=== PATIENT | male | born 1960 | race African-American/Black ===

== ENCOUNTER 2016-05-22 09:11 | Inpatient (IN) | payer OTHER ==
[2016-05-22 10:58] VITALS: BMI 34.9
--- NOTE | 2016-05-22 12:10 | HP ---
CIWA Score - CIWA Score Nausea/Vomitin-No Nausea/No Vomiting Muscle Tremors: 4-Moderate,w/Arms Extend Anxiety: 4-Mod. Anxious/Guarded Agitation: 4-Moderately Restless Paroxysmal Sweats: 1-Minimal Palms Moist Orientation: 0-Oriented Tacttile Disturbances: 3-Moderate Itch/Numb/Burn Auditory Disturbances: 0-None Visual Disturbances: 0-None Headache: 2-Mild CIWA-Ar Total Score: 18 Admission ROS BHS - HPI Chief Complaint: DETOX TX FOR ALCOHOL DEPENDENCE Allergies/Adverse Reactions: Allergies Allergy/AdvReac Type Severity Reaction Status Date / Time Penicillins Allergy Severe Rash Verified 05/22/16 11:52 turkey Allergy Severe Hives Verified 05/22/16 11:52 IV CONTRAST Allergy Severe Hives Uncoded 05/22/16 11:52 SEA FOOD Allergy Severe Hives Uncoded 05/22/16 11:52 History of Present Illness: 55 Y/O AA/MALE WITH A HX OF ALCOHOL AND COCAINE DEPENDENCE SEEKING DETOX TX. PT STATES HAD A STROKE END OF APRIL 2016 WEEK OF 04/28 - 05/03 AND HOSPITALIZED FOR 2 WEEKS AT [facility] .STARTED DRINKING COUPLE DAYS AFTER DISCHARGE EVERYDAY THEREAFTER. HX DM HTN ASTHMA COPD Exam Limitations: No Limitations - Ebola screening Have you traveled outside of the country in the last 21 days: No Have you had contact with anyone from an Ebola affected area: No Have you been sick,other than usual withdrawal symptoms: No - Review of Systems Constitutional: Chills, Loss of Appetite, Night Sweats, Changes in sleep EENT: reports: Blurred Vision (WEARS GLASSES), Tearing, Nose Congestion, Dental Problems (MISSING TEETH) Respiratory: reports: Shortness of Breath (HX ASTHMA AND COPD), Wheezing Cardiac: reports: Lightheadedness, Chest Tightness GI: reports: Blood Streaked Bowels (HX COLON POLYPS), Constipated, Diarrhea, Nausea, Poor Appetite, Poor Fluid Intake, Vomiting : reports: No Symptoms Reported Musculoskeletal: reports: Back Pain, Joint Pain, Muscle Pain Integumentary: reports: Bruising (ON ARMS) Neuro: reports: Headache, Unsteady Gait Endocrine: reports: No Symptoms Reported Psychiatric: reports: Orientated x3, Anxious Other Systems: Reviewed and Negative Patient History - Patient Medical History Hx Anemia: Yes (ON IRON) Hx Asthma: Yes (MDI) Hx Chronic Obstructive Pulmonary Disease (COPD): Yes (MDI) Hx Cancer: No Hx Cardiac Disorders: No Hx Congestive Heart Failure: No Hx Hypertension: Yes Hx Hypercholesterolemia: No Hx Pacemaker: No HX Cerebrovascular Accident: Yes (LEFT SIDE CVA 04/2016-RESIDUAL WEAKNESS.) Hx Seizures: No Hx Dementia: No Hx Diabetes: Yes (ON METFORMIN) Hx Gastrointestinal Disorders: No Hx Liver Disease: No Hx Genitourinary Disorders: No Hx Sexually Transmitted Disorders: No Hx Renal Disease (ESRD): No Hx Thyroid Disease: No Hx Human Immunodeficiency Virus (HIV): No (LAST 07/25 NEGATIVE) Hx Hepatitis C: No Hx Depression: Yes (ON MEDS) Hx Suicide Attempt: No (DENIES) Hx Bipolar Disorder: Yes ( ANXIETY DISORDER AND ADHD) Hx Schizophrenia: Yes Other Medical History: HX OF NEUROPATHY - Patient Surgical History Past Surgical History: Yes Hx Neurologic Surgery: No Hx Cataract Extraction: No Hx Cardiac Surgery: No Hx Lung Surgery: No Hx Breast Surgery: No Hx Breast Biopsy: No Hx Abdominal Surgery: No Hx Appendectomy: No Hx Cholecystectomy: No Hx Genitourinary Surgery: No Hx Orthopedic Surgery: Yes (RIGHT ACHILLES SX DUE T SPORTS FX 1979) Other Surgical History: UMBILICAL HERNIA REPAIR AT IN 2010 Anesthesia Reaction: No - PPD History Previous Implant?: Yes Documented Results: Negative w/o proof Implanted On Prior [facility] Admission?: Yes Date: 07/24/15 PPD to be Administered?: No - Reproductive History Patient is a Female of Child Bearing Age (11 -55 yrs old): No (MALE) - Smoking Cessation Smoking history: Current every day smoker Have you smoked in the past 12 months: Yes Aproximately how many cigarettes per day: 20 Hx Chewing Tobacco Use: No Initiated information on smoking cessation: Yes 'Breaking Loose' booklet given: 05/22/16 - Substance & Tx. History Hx Alcohol Use: Yes (BEER/COGNAC/WHISKY) Hx Substance Use: Yes (CRACK) Substance Use Type: Alcohol, Cocaine Hx Substance Use Treatment: Yes ([facility]) - Substances Abused Crack Route: Smoking Frequency: Daily Amount used: $100-200 Age of first use: 36 Date of Last Use: 05/21/16 Alcohol-beer/cognac/whisky Route: Oral Frequency: Daily Amount used: 2-6 pks./fifth Age of first use: 17 Date of Last Use: 05/22/16 Family Disease History - Family Disease History Family Disease History: Diabetes: Grandparent, Mother (), Heart Disease : Grandparent, Other: Father (ALCOHOL,) Admission Physical Exam [facility] - Vital Signs Vital Signs: Vital Signs - 24 hr 05/22/16 10:56 Temperature 97 F L Pulse Rate 80 Respiratory 20 Rate Blood Pressure 106/62 - Physical General Appearance: Yes: Moderate Distress, Obese, Irritable, Anxious HEENTM: Yes: EOMI, Normocephalic, BILL, Pharynx Normal Respiratory: Yes: Chest Non-Tender, Lungs Clear, Normal Breath Sounds, No Respiratory Distress Breast: Yes: Breasts Symetrical, No Discharge, Other (C/O UPPER CHEST/BREAST AREA DISCOMFORT. SMALL MOVABLE CYST-LIKE MULTIPLE LUMPS THROUGHOUT LARGE AREAS OF FATTY TISSUE OF BOTH BREASTS. PAIN ON PALPATION. HAS HAD FOR OVER ONE YEAR AND STATES HAS BROUGHT IT TO THE ATTENTION OF HIS PMD IN [place].) Cardiology: Yes: Regular Rhythm, Regular Rate, S1, S2 Abdominal: Yes: Normal Bowel Sounds, Non Tender, Soft, Protuberent Genitourinary: Yes: Other (N/C) Back: Yes: Within Normal Limits Musculoskeletal: Yes: full range of Motion, Muscle Pain (UPPER CHEST/BREAST AREAS ON PALPATION AND MOVEMENT), Muscle weakness (LEFT HAND. NON-SUSTAINING HAND RAISE.) Extremities: Yes: Normal Range of Motion, Tremors, Other Neurological: Yes: securities dealer II-XII NML intact, Fully Oriented, Alert, Motor Strength 5/5 (RIGHT SIDE WNL BUT WEAK ON LEFT SIDE ON HAND SQUEEZING.) Integumentary: Yes: Dry, Warm Lymphatic: Yes: Within Normal Limits - Diagnostic (1) Alcohol dependence with uncomplicated withdrawal Current Visit: Yes Status: Acute (2) Cigarette nicotine dependence Current Visit: Yes Status: Acute Qualifiers: Substance use status: in withdrawal Qualified Code(s): F17.213 - Nicotine dependence, cigarettes, with withdrawal (3) Cocaine dependence Current Visit: Yes Status: Acute Qualifiers: Substance use status: uncomplicated Qualified Code(s): F14.20 - Cocaine dependence, uncomplicated (4) Type II diabetes mellitus Current Visit: Yes Status: Chronic Qualifiers: Diabetes mellitus complication status: without complication 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 Qualified Code(s): E11.9 - Type 2 diabetes mellitus without complications (5) Use of cane as ambulatory aid Current Visit: Yes Status: Chronic (6) Anemia Current Visit: Yes Status: Chronic Qualifiers: Anemia type: unspecified type Qualified Code(s): D64.9 - Anemia, unspecified (7) Asthma Current Visit: Yes Status: Chronic Qualifiers: Asthma severity: unspecified severity Asthma complication type: uncomplicated Qualified Code(s): J45.909 - Unspecified asthma, uncomplicated (8) COPD (chronic obstructive pulmonary disease) Current Visit: Yes Status: Chronic Qualifiers: COPD type: emphysema Emphysema type: unspecified Qualified Code( s): J43.9 - Emphysema, unspecified (9) Chronic bilateral low back pain with bilateral sciatica Current Visit: Yes Status: Chronic (10) DJD (degenerative joint disease) Current Visit: Yes Status: Chronic Qualifiers: Osteoarthritis location: unspecified site Osteoarthritis type: unspecified Qualified Code(s): M19.90 - Unspecified osteoarthritis, unspecified site (11) HTN (hypertension) Current Visit: Yes Status: Chronic Qualifiers: Hypertension type: essential hypertension Qualified Code(s): I10 - Essential (primary) hypertension (12) Obesity Current Visit: Yes Status: Chronic Qualifiers: Obesity type: unspecified obesity type Obesity severity: morbid Qualified Code(s): E66.01 - Morbid (severe) obesity due to excess calories (13) Gynecomastia, male Current Visit: Yes Status: Chronic Cleared for Admission BHS - Detox or Rehab [facility] Level of Care: Medically Managed Detox Regimen/Protocol: Librium S Breath Alcohol Content Breath Alcohol Content: 0 Urine Drug Screen - Results Drug Screen Negative: No Urine Drug Screen Results: KRISTI-Cocaine, OXY-Oxycodone
[2016-05-22] MEDS ORDERED: MAG HYDROX/AL HYDROX/SIMETH 30 ML UNIT-DOSE CUP PO PRN (13:41)
[2016-05-22] MEDS ORDERED: IBUPROFEN 400 MG TABLET (FP) PO PRN (13:41)
[2016-05-22] MEDS ORDERED: ACETAMINOPHEN 325 MG TABLET (FP) PO PRN (13:41)
[2016-05-22] MEDS ORDERED: MAGNESIUM HYDROX 2400MG/30ML ORAL SUSPENSION 30 ML CUP PO PRN (13:41)
[2016-05-22] MEDS ORDERED: guaiFENesin/D-METHORPHAN HB 10 ML UNIT-DOSE CUPS PO PRN (13:41)
[2016-05-22] MEDS ORDERED: chlordiazePOXIDE HCL 25 MG CAPSULE PO PRN (13:41)
[2016-05-22] MEDS ORDERED: diphenhydrAMINE HCL 50 MG CAPSULE PO PRN (13:41)
[2016-05-22] MEDS ORDERED: MAGNESIUM CITRATE 300 ML BOTTLE PO PRN (13:41)
[2016-05-22] MEDS ORDERED: LOPERAMIDE HCL 2 MG CAPSULE PO PRN (13:41)
[2016-05-22] MEDS ORDERED: P-EPHED 60MG/TRIPROLIDI 2.5MG TABLET PO PRN (13:41)
[2016-05-22] MEDS ORDERED: MENTHOL/PHENOL 1 EACH UD MM PRN (13:41)
[2016-05-22] MEDS ORDERED: hydrOXYzine PAMOATE 25 MG CAPSULE (FP) PO PRN (13:47)
[2016-05-22] MEDS ORDERED: ALBUTEROL SO4 6.7 GM HFA INHALER IH PRN (14:03)
[2016-05-22] MEDS: LISINOPRIL 10 MG TABLET (FP) PO SCH (15:24)
[2016-05-22] MEDS: NICOTINE 21 MG/24 HOURS TOPICAL PATCH TD SCH (15:24)
[2016-05-22] MEDS: ASPIRIN COATED 81 MG TABLET.EC PO SCH (15:24)
[2016-05-22] MEDS: FERROUS SO4 325 MG TABLET (FP) PO SCH (15:24)
[2016-05-22] MEDS: NICOTINE POLACRILEX 4 MG GUM BUC PRN (15:25)
[2016-05-22 17:40] LABS: URINE APPEARANCE CLEAR; URINE BILIRUBIN NEGATIVE (NEGATIVE); URINE BLOOD NEGATIVE (NEGATIVE); URINE COLOR LTYELLOW; URINE GLUCOSE (UA) NEGATIVE (NEGATIVE); URINE KETONE NEGATIVE (NEGATIVE); URINE NITRITE NEGATIVE (NEGATIVE); URINE PROTEIN NEGATIVE (NEGATIVE); URINE UROBILINOGEN NEGATIVE E.U./dl (0.2-1.0)
[2016-05-22 17:56] LABS: URINE LEUK ESTERASE TRACE (NEGATIVE)
[2016-05-22 18:23] LABS: URINE RBC 1 /hpf (0-3); URINE WBC 12 /hpf (3-5)
[2016-05-22] MEDS: metFORMIN HCL 500 MG TABLET (FP) PO SCH (18:27)
[2016-05-22] MEDS: chlordiazePOXIDE HCL 25 MG CAPSULE PO SCH ×2 (18:27→22:00)
[2016-05-22] MEDS: GABAPENTIN 300 MG CAPSULE (FP) PO SCH (21:58)
[2016-05-22] MEDS: CYCLOBENZAPRINE HCL 10 MG TABLET (FP) PO SCH (21:58)
[2016-05-22] MEDS: ATORVASTATIN CA 20 MG TABLET (FP) PO SCH (21:58)
[2016-05-22] MEDS: THIAMINE HCL 100 MG TABLET (FP) PO SCH (21:58)
[2016-05-23] MEDS: chlordiazePOXIDE HCL 25 MG CAPSULE PO SCH (06:15)
[2016-05-23] MEDS: GABAPENTIN 300 MG CAPSULE (FP) PO SCH ×3 (06:15→22:27)
[2016-05-23] MEDS: CYCLOBENZAPRINE HCL 10 MG TABLET (FP) PO SCH (07:24)
[2016-05-23] MEDS: metFORMIN HCL 500 MG TABLET (FP) PO SCH ×2 (07:24→17:32)
[2016-05-23 09:18] LABS: HIV 1 & 2 AB NEGATIVE; HIV 1 AGp24 NEGATIVE
[2016-05-23] MEDS: PRENATAL VITAMINS W/ FOLIC ACID TABLET (FP) PO SCH (10:09)
[2016-05-23] MEDS: NICOTINE 21 MG/24 HOURS TOPICAL PATCH TD SCH (10:09)
[2016-05-23] MEDS: FERROUS SO4 325 MG TABLET (FP) PO SCH ×2 (10:09→17:32)
[2016-05-23] MEDS: ASPIRIN COATED 81 MG TABLET.EC PO SCH (10:09)
--- NOTE | 2016-05-23 10:09 | EKG ---
Test Reason : Blood Pressure : / mmHG Vent. Rate : 062 BPM Atrial Rate : 062 BPM P-R Int : 148 ms QRS Dur : 090 ms QT Int : 434 ms P-R-T Axes : 040 008 025 degrees QTc Int : 440 ms NORMAL SINUS RHYTHM SEPTAL INFARCT , AGE UNDETERMINED NON-SPECIFIC INTRA-VENTRICULAR CONDUCTION DELAY ABNORMAL ECG NO PREVIOUS ECGS AVAILABLE Confirmed by VIOLETA LOUIS MD ([id number]) on 05/23/2016 10:08:51 AM Referred By: Oscar Borges Confirmed By:VIOLETA LOUIS MD
[2016-05-23] MEDS: NICOTINE POLACRILEX 4 MG GUM BUC PRN ×2 (10:11→23:05)
[2016-05-23 10:18] LABS: MCH 28.1 pg (25.7-33.7); MCHC 32.9 g/dl (32.0-35.9); MEAN CELL VOLUME 85.3 fl (80-96); MEAN PLT VOLUME 9.5 fl (7.5-11.1); PLATELET COUNT 309 K/MM3 (134-434); RDW 16.4 % (11.9-15.9); WHITE BLOOD COUNT 7.9 K/mm3 (4.0-10.0)
[2016-05-23 10:30] LABS: ALBUMIN 3.5 g/dl (3.4-5.0); ANION GAP 8 (8-16); CALCIUM 8.6 mg/dL (8.5-10.1); CO2 25 mmol/L (21-32); GLUCOSE,RANDOM 136 mg/dL (74-106)
[2016-05-23] MEDS: LISINOPRIL 10 MG TABLET (FP) PO SCH (10:33)
[2016-05-23 10:34] LABS: ALK PHOS 147 U/L (45-117); BILIRUBIN,TOTAL 0.2 mg/dL (0.2-1.0); COCKROFT - GAULT 113.28; CREATININE 1.1 mg/dL (0.7-1.3); SGOT/AST 39 U/L (15-37); SGPT/ALT 38 U/L (12-78)
--- NOTE | 2016-05-23 13:31 | CONSULT ---
[facility] Psychiatric Consult - Data Date of interview: 05/23/16 Admission source: [facility] Identifying data: Another admission to [facility] for this 55 y/o AA male seeking detox treatment on for alcohol and cocaine dependence.Patient is a ,a father of one,currently homeless,unemployed (disabled) and supported on SSI benefits. Substance Abuse History: - Smoking Cessation. Smoking history: Current every day smoker. Have you smoked in the past 12 months: Yes. Aproximately how many cigarettes per day: 20. Hx Chewing Tobacco Use: No. Initiated information on smoking cessation: Yes. 'Breaking Loose' booklet given: 05/22/16. - Substance & Tx. History. Hx Alcohol Use: Yes (BEER/COGNAC/WHISKY). Hx Substance Use: Yes (CRACK). Substance Use Type: Alcohol, Cocaine. Hx Substance Use Treatment : Yes ([facility]). - Substances Abused. Crack. Route: Smoking. Frequency: Daily. Amount used: $100-200. Age of first use: 36. Date of Last Use: 05/21/16. Alcohol-beer/cognac/whisky. Route: Oral. Frequency: Daily. Amount used: 2-6 pks./fifth. Age of first use: 17. Date of Last Use: . Confirmed by patient. Medical History: COPD,diabetes mellitus-type II,bronchial asthma,CVA with left- sidede weakness (04/2016),neuropathy,sleep apnea,degenerative joint disease and anemia.Low back pain.Patient walks with a cane. Psychiatric History: Superficially cooperative historian.In this interview,the patient denies history of psychiatric hospitalizations and OPD care." I stopped seeing the psychiatrist and I am no longer taking psychiatric medications." Diagnosed with ADHD and Schizoaffective Disorder (as per records).Remote history of a suicide attempt (wrist-cutting). Physical/Sexual Abuse/Trauma History: Patient denies. Additional Comment: Urine Drug Screen Results: KRISTI-Cocaine, OXY-Oxycodone.Noted. Mental Status Exam - Mental Status Exam Alert and Oriented to: Time, Place, Person Cognitive Function: Grossly Intact Patient Appearance: Unkempt, Disheveled (walking with a cane;unsteady gait) Mood: Angry (for no apparent reason), Irritable Affect: Blunted Patient Behavior: Fatigued, Uncooperative, Guarded Speech Pattern: Clear (non-spontaneous but coherent) Voice Loudness: Moderately Soft/Quiet Thought Process: Disorganized Thought Disorder: Bizarre Hallucinations: Denies Suicidal Ideation: Denies Homicidal Ideation: Denies Insight/Judgement: Poor Sleep: Fair Appetite: Good Gait/Station: Other (walks with cane since stroke in April 2016) Psychiatric Findings - Problem List ([place] 1, 2,3) (1) Alcohol dependence with uncomplicated withdrawal Current Visit: Yes Status: Acute (2) Cocaine dependence Current Visit: Yes Status: Acute Qualifiers: Substance use status: uncomplicated Qualified Code(s): F14.20 - Cocaine dependence, uncomplicated (3) Cigarette nicotine dependence Current Visit: Yes Status: Acute Qualifiers: Substance use status: in withdrawal Qualified Code(s): F17.213 - Nicotine dependence, cigarettes, with withdrawal (4) ADHD (attention deficit hyperactivity disorder) Current Visit: Yes Status: Chronic Qualifiers: Attention deficit-hyperactivity disorder type: unspecified Qualified Code(s): F90.9 - Attention-deficit hyperactivity disorder, unspecified type Comment: Self-reported history. (5) Schizoaffective disorder Current Visit: Yes Status: Suspected Qualifiers: Schizoaffective disorder type: bipolar Qualified Code(s): F25.0 - Schizoaffective disorder, bipolar type Comment: History. (6) Anemia Current Visit: Yes Status: Chronic Qualifiers: Anemia type: unspecified type Qualified Code(s): D64.9 - Anemia, unspecified (7) Asthma Current Visit: Yes Status: Chronic Qualifiers: Asthma severity: unspecified severity Asthma complication type: uncomplicated Qualified Code(s): J45.909 - Unspecified asthma, uncomplicated (8) COPD (chronic obstructive pulmonary disease) Current Visit: Yes Status: Chronic Qualifiers: COPD type: emphysema Emphysema type: unspecified Qualified Code( s): J43.9 - Emphysema, unspecified (9) Chronic bilateral low back pain with bilateral sciatica Current Visit: Yes Status: Chronic (10) DJD (degenerative joint disease) Current Visit: Yes Status: Chronic Qualifiers: Osteoarthritis location: unspecified site Osteoarthritis type: unspecified Qualified Code(s): M19.90 - Unspecified osteoarthritis, unspecified site (11) HTN (hypertension) Current Visit: Yes Status: Chronic Qualifiers: Hypertension type: essential hypertension Qualified Code(s): I10 - Essential (primary) hypertension (12) Obesity Current Visit: Yes Status: Chronic Qualifiers: Obesity type: unspecified obesity type Obesity severity: morbid Qualified Code(s): E66.01 - Morbid (severe) obesity due to excess calories (13) Type II diabetes mellitus Current Visit: Yes Status: Chronic Qualifiers: Diabetes mellitus complication status: without complication 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
--- NOTE | 2016-05-23 13:33 | PN ---
[facility] CIWA - CIWA Score Nausea/Vomitin-No Nausea/No Vomiting Muscle Tremors: 4-Moderate,w/Arms Extend Anxiety: 3 Agitation: 2 Paroxysmal Sweats: 3 Orientation: 0-Oriented Tacttile Disturbances: 1-Very Mild Itch/Numbness Auditory Disturbances: 0-None Visual Disturbances: 0-None Headache: 0-None Present CIWA-Ar Total Score: 13 BHS Progress Note (SOAP) Subjective: Anxiety,tremors,sweating,interrupted sleep,restless Objective: 05/23/16 13:32 Vital Signs - 8 hr 05/23/16 05/23/16 06:45 10:37 Temperature 96.6 F L 96.9 F L Pulse Rate 78 61 Respiratory 18 18 Rate Blood Pressure 112/71 105/61 Laboratory Last Values WBC 7.9 K/mm3 (4.0-10.0) D 05/23/16 06:00 RBC 2.86 M/mm3 (4.00-5.60) L D 05/23/16 06:00 Hgb 8.0 GM/dL (11.7-16.9) L D 05/23/16 06:00 Hct 24.4 % (35.4-49) L D 05/23/16 06:00 MCV 85.3 fl (80-96) 05/23/16 06:00 MCHC 32.9 g/dl (32.0-35.9) 05/23/16 06:00 RDW 16.4 % (11.9-15.9) H 05/23/16 06:00 Plt Count 309 K/MM3 (134-434) D 05/23/16 06:00 MPV 9.5 fl (7.5-11.1) 05/23/16 06:00 Sodium 139 mmol/L (136-145) 05/23/16 06:00 Potassium 3.9 mmol/L (3.5-5.1) 05/23/16 06:00 Chloride 106 mmol/L (98-107) 05/23/16 06:00 Carbon Dioxide 25 mmol/L (21-32) 05/23/16 06:00 Anion Gap 8 (8-16) 05/23/16 06:00 BUN 18 mg/dL (7-18) 05/23/16 06:00 Creatinine 1.1 mg/dL (0.7-1.3) 05/23/16 06:00 Creat Clearance w eGFR > 60 (>60) 05/23/16 06:00 POC Glucometer 103 UNITS (()) 05/23/16 06:13 Random Glucose 136 mg/dL (74-106) H D 05/23/16 06:00 Calcium 8.6 mg/dL (8.5-10.1) 05/23/16 06:00 Total Bilirubin 0.2 mg/dL (0.2-1.0) D 05/23/16 06:00 AST 39 U/L (15-37) H 05/23/16 06:00 ALT 38 U/L (12-78) 05/23/16 06:00 Alkaline Phosphatase 147 U/L (45-117) H D 05/23/16 06:00 Total Protein 7.0 g/dl (6.4-8.2) 05/23/16 06:00 Albumin 3.5 g/dl (3.4-5.0) 05/23/16 06:00 Urine Color Ltyellow 05/22/16 15:00 Urine Appearance Clear 05/22/16 15:00 Urine pH 5.0 (5.0-8.0) 05/22/16 15:00 Ur Specific [place] 1.024 (1.001-1.035) 05/22/16 15:00 Urine Protein Negative (NEGATIVE) 05/22/16 15:00 Urine Glucose (UA) Negative (NEGATIVE) 05/22/16 15:00 Urine Ketones Negative (NEGATIVE) 05/22/16 15:00 Urine Blood Negative (NEGATIVE) 05/22/16 15:00 Urine Nitrite Negative (NEGATIVE) 05/22/16 15:00 Urine Bilirubin Negative (NEGATIVE) 05/22/16 15:00 Urine Urobilinogen Negative E.U./dl (0.2-1.0) 05/22/16 15:00 Ur Leukocyte Esterase Trace (NEGATIVE) H 05/22/16 15:00 Urine RBC 1 /hpf (0-3) 05/22/16 15:00 Urine WBC 12 /hpf (3-5) 05/22/16 15:00 Ur Epithelial Cells Rare /hpf (FEW) 05/22/16 15:00 RPR Titer Nonreactive (NONREACTIVE) 05/23/16 06:00 HIV 1&2 Antibody Screen Negative 05/22/16 10:00 HIV P24 Antigen Negative 05/22/16 10:00 labs noted Assessment: 05/23/16 13:33 Withdrawal sx. Plan: Continue detox
[2016-05-23] MEDS ORDERED: chlordiazePOXIDE 5 MG CAPSULE PO SCH (17:00)
[2016-05-23] MEDS: chlordiazePOXIDE HCL 10 MG CAPSULE PO SCH ×2 (17:35→22:28)
[2016-05-23] MEDS: THIAMINE HCL 100 MG TABLET (FP) PO SCH (22:26)
[2016-05-23] MEDS: ATORVASTATIN CA 20 MG TABLET (FP) PO SCH (22:28)
[2016-05-24] MEDS: CYCLOBENZAPRINE HCL 10 MG TABLET (FP) PO PRN ×2 (05:36→18:59)
[2016-05-24] MEDS: chlordiazePOXIDE HCL 10 MG CAPSULE PO SCH ×2 (05:36→11:21)
[2016-05-24] MEDS: GABAPENTIN 300 MG CAPSULE (FP) PO SCH ×2 (05:36→13:22)
[2016-05-24] MEDS: FERROUS SO4 325 MG TABLET (FP) PO SCH ×3 (07:29→18:02)
[2016-05-24] MEDS: metFORMIN HCL 500 MG TABLET (FP) PO SCH ×2 (08:35→18:02)
[2016-05-24] MEDS: LISINOPRIL 10 MG TABLET (FP) PO SCH (11:22)
[2016-05-24] MEDS: ASPIRIN COATED 81 MG TABLET.EC PO SCH (11:22)
[2016-05-24] MEDS: PRENATAL VITAMINS W/ FOLIC ACID TABLET (FP) PO SCH (11:22)
[2016-05-24] MEDS: NICOTINE 21 MG/24 HOURS TOPICAL PATCH TD SCH (11:26)
[2016-05-24] MEDS: NICOTINE POLACRILEX 4 MG GUM BUC PRN ×2 (13:24→18:06)
[2016-05-24] MEDS ORDERED: chlordiazePOXIDE HCL 10 MG CAPSULE PO SCH (17:00)
[2016-05-24] MEDS ORDERED: chlordiazePOXIDE 5 MG CAPSULE PO SCH (17:00)
--- NOTE | 2016-05-24 17:20 | PN ---
S CIWA - CIWA Score Nausea/Vomitin-Mild Nausea/No Vomiting Muscle Tremors: 3 Anxiety: 3 Agitation: 2 Paroxysmal Sweats: 3 Orientation: 1-Uncertain about Date Tacttile Disturbances: 2-Mild Itch/Numbness/Burn Auditory Disturbances: 0-None Visual Disturbances: 2-Mild Sensitivity Headache: 2-Mild CIWA-Ar Total Score: 19 S Progress Note (SOAP) Subjective: Fatigue, H/A, Interrupted sleep. Objective: PT. A & O X 2 (DISORIENTED ABOUT DAY / DATE). PT. OBSERVED AMBULATING ON UNIT. 05/24/16 17:18 Vital Signs Temperature 96 F L 05/24/16 14:00 Pulse Rate 64 05/24/16 14:00 Respiratory Rate 20 05/24/16 14:00 Blood Pressure 117/73 05/24/16 14:00 O2 Sat by Pulse Oximetry (%) Laboratory Last Values WBC 7.9 K/mm3 (4.0-10.0) D 05/23/16 06:00 RBC 2.86 M/mm3 (4.00-5.60) L D 05/23/16 06:00 Hgb 8.0 GM/dL (11.7-16.9) L D 05/23/16 06:00 Hct 24.4 % (35.4-49) L D 05/23/16 06:00 MCV 85.3 fl (80-96) 05/23/16 06:00 MCHC 32.9 g/dl (32.0-35.9) 05/23/16 06:00 RDW 16.4 % (11.9-15.9) H 05/23/16 06:00 Plt Count 309 K/MM3 (134-434) D 05/23/16 06:00 MPV 9.5 fl (7.5-11.1) 05/23/16 06:00 Sodium 139 mmol/L (136-145) 05/23/16 06:00 Potassium 3.9 mmol/L (3.5-5.1) 05/23/16 06:00 Chloride 106 mmol/L (98-107) 05/23/16 06:00 Carbon Dioxide 25 mmol/L (21-32) 05/23/16 06:00 Anion Gap 8 (8-16) 05/23/16 06:00 BUN 18 mg/dL (7-18) 05/23/16 06:00 Creatinine 1.1 mg/dL (0.7-1.3) 05/23/16 06:00 Creat Clearance w eGFR > 60 (>60) 05/23/16 06:00 POC Glucometer 219 UNITS (()) 05/24/16 16:55 Random Glucose 136 mg/dL (74-106) H D 05/23/16 06:00 Calcium 8.6 mg/dL (8.5-10.1) 05/23/16 06:00 Total Bilirubin 0.2 mg/dL (0.2-1.0) D 05/23/16 06:00 AST 39 U/L (15-37) H 05/23/16 06:00 ALT 38 U/L (12-78) 05/23/16 06:00 Alkaline Phosphatase 147 U/L (45-117) H D 05/23/16 06:00 Total Protein 7.0 g/dl (6.4-8.2) 05/23/16 06:00 Albumin 3.5 g/dl (3.4-5.0) 05/23/16 06:00 Urine Color Ltyellow 05/22/16 15:00 Urine Appearance Clear 05/22/16 15:00 Urine pH 5.0 (5.0-8.0) 05/22/16 15:00 Ur Specific [place] 1.024 (1.001-1.035) 05/22/16 15:00 Urine Protein Negative (NEGATIVE) 05/22/16 15:00 Urine Glucose (UA) Negative (NEGATIVE) 05/22/16 15:00 Urine Ketones Negative (NEGATIVE) 05/22/16 15:00 Urine Blood Negative (NEGATIVE) 05/22/16 15:00 Urine Nitrite Negative (NEGATIVE) 05/22/16 15:00 Urine Bilirubin Negative (NEGATIVE) 05/22/16 15:00 Urine Urobilinogen Negative E.U./dl (0.2-1.0) 05/22/16 15:00 Ur Leukocyte Esterase Trace (NEGATIVE) H 05/22/16 15:00 Urine RBC 1 /hpf (0-3) 05/22/16 15:00 Urine WBC 12 /hpf (3-5) 05/22/16 15:00 Ur Epithelial Cells Rare /hpf (FEW) 05/22/16 15:00 RPR Titer Nonreactive (NONREACTIVE) 05/23/16 06:00 HIV 1&2 Antibody Screen Negative 05/22/16 10:00 HIV P24 Antigen Negative 05/22/16 10:00 LABS NOTED. Assessment: 05/24/16 17:19 WITHDRAWAL SYMPTOMS. Plan: CONTINUE DETOX. ADVISED PATIENT TO FOLLOW-UP WITH [facility] REHAB MEDICAL PROVIDER AFTER DISCHARGE FROM DETOX FOR GENERAL MEDICAL ASSESSMENT AND FOR ABNORMAL ADMISSION LAB VALUES.
[2016-05-24 18:05] VITALS: BP 106/52; PULSE 60; TEMP 97
--- NOTE | 2016-05-24 22:56 | PN ---
S Progress Note Note: MD'S NOTE: INFORMED AT ABOUT 10:50PM THAT THE PT. SIGNED OUT AMA AT ABOUT 9:15PM HOWEVER, HE WAS RECOMMENDED TO F/U WITH PMD AND OUT PT. PROGRAMS. PROVIDER: RACHAEL DANIELS MD
[2016-05-25] MEDS ORDERED: chlordiazePOXIDE HCL 10 MG CAPSULE PO SCH (17:00)
--- NOTE | 2016-05-30 10:59 | DS ---
[facility] Detox Discharge Summary Admission Date: 05/22/16 Discharge Date: 05/24/16 - History Present History: Alcohol Dependence, Cocaine Dependence Pertinent Past History: Asthma HTN Type II DM Obesity - Physical Exam Results Vital Signs: Vital Signs Temperature 97 F L 05/24/16 18:04 Pulse Rate 60 05/24/16 18:04 Respiratory Rate 18 05/24/16 18:04 Blood Pressure 106/52 05/24/16 18:04 O2 Sat by Pulse Oximetry (%) Pertinent Admission Physical Exam Findings: Withdrawal sx. Laboratory Tests 05/22/16 05/22/16 05/22/16 10:00 12:40 15:00 WBC RBC Hgb Hct MCV MCHC RDW Plt Count MPV Sodium Potassium Chloride Carbon Dioxide Anion Gap BUN Creatinine Creat Clearance w eGFR POC Glucometer 134 Random Glucose Calcium Total Bilirubin AST ALT Alkaline Phosphatase Total Protein Albumin Urine Color Ltyellow Urine Appearance Clear Urine pH 5.0 Ur Specific [place] 1.024 Urine Protein Negative Urine Glucose (UA) Negative Urine Ketones Negative Urine Blood Negative Urine Nitrite Negative Urine Bilirubin Negative Urine Urobilinogen Negative Ur Leukocyte Esterase Trace H Urine RBC 1 Urine WBC 12 Ur Epithelial Cells Rare RPR Titer HIV 1&2 Antibody Screen Negative HIV P24 Antigen Negative 05/22/16 05/23/16 05/23/16 16:34 06:00 06:00 WBC 7.9 D RBC 2.86 L D Hgb 8.0 L D Hct 24.4 L D MCV 85.3 MCHC 32.9 RDW 16.4 H Plt Count 309 D MPV 9.5 Sodium 139 Potassium 3.9 Chloride 106 Carbon Dioxide 25 Anion Gap 8 BUN 18 Creatinine 1.1 Creat Clearance w eGFR > 60 POC Glucometer 112 Random Glucose 136 H D Calcium 8.6 Total Bilirubin 0.2 D AST 39 H ALT 38 Alkaline Phosphatase 147 H D Total Protein 7.0 Albumin 3.5 Urine Color Urine Appearance Urine pH Ur Specific [place] Urine Protein Urine Glucose (UA) Urine Ketones Urine Blood Urine Nitrite Urine Bilirubin Urine Urobilinogen Ur Leukocyte Esterase Urine RBC Urine WBC Ur Epithelial Cells RPR Titer HIV 1&2 Antibody Screen HIV P24 Antigen 05/23/16 05/23/16 05/23/16 06:00 06:13 16:24 WBC RBC Hgb Hct MCV MCHC RDW Plt Count MPV Sodium Potassium Chloride Carbon Dioxide Anion Gap BUN Creatinine Creat Clearance w eGFR POC Glucometer 103 177 Random Glucose Calcium Total Bilirubin AST ALT Alkaline Phosphatase Total Protein Albumin Urine Color Urine Appearance Urine pH Ur Specific [place] Urine Protein Urine Glucose (UA) Urine Ketones Urine Blood Urine Nitrite Urine Bilirubin Urine Urobilinogen Ur Leukocyte Esterase Urine RBC Urine WBC Ur Epithelial Cells RPR Titer Nonreactive HIV 1&2 Antibody Screen HIV P24 Antigen 05/24/16 05/24/16 05:38 16:55 WBC RBC Hgb Hct MCV MCHC RDW Plt Count MPV Sodium Potassium Chloride Carbon Dioxide Anion Gap BUN Creatinine Creat Clearance w eGFR POC Glucometer 99 219 Random Glucose Calcium Total Bilirubin AST ALT Alkaline Phosphatase Total Protein Albumin Urine Color Urine Appearance Urine pH Ur Specific [place] Urine Protein Urine Glucose (UA) Urine Ketones Urine Blood Urine Nitrite Urine Bilirubin Urine Urobilinogen Ur Leukocyte Esterase Urine RBC Urine WBC Ur Epithelial Cells RPR Titer HIV 1&2 Antibody Screen HIV P24 Antigen labs noted - Treatment Patient has Accepted a Rehab Referral to: AA meetings - Medication Discharge Medications: Ambulatory Orders Aspirin [Ecotrin] 81 mg PO DAILY 07/22/15 Cyclobenzaprine HCl [Flexeril -] 10 mg PO TID 07/22/15 Ferrous Sulfate [Feosol] 325 mg PO DAILY 07/22/15 Gabapentin 600 mg PO TID 07/22/15 Lisinopril 10 mg PO DAILY 07/22/15 Metformin HCl [Glucophage] 500 mg PO BID 07/22/15 Trazodone HCl [Desyrel -] 150 mg PO HS 07/22/15 Albuterol Sulfate Inhaler - [Ventolin Hfa Inhaler -] 2 inh IH Q4H PRN 05/22/16 Simvastatin [Zocor -] 40 mg PO HS 05/22/16 - Diagnosis (1) Alcohol dependence with uncomplicated withdrawal Status: Acute (2) Cigarette nicotine dependence Status: Acute Qualifiers: Substance use status: uncomplicated Qualified Code(s): F17.210 - Nicotine dependence, cigarettes, uncomplicated (3) Cocaine dependence Status: Acute Qualifiers: Substance use status: uncomplicated Qualified Code(s): F14.20 - Cocaine dependence, uncomplicated (4) ADHD (attention deficit hyperactivity disorder) Status: Chronic Qualifiers: Attention deficit-hyperactivity disorder type: unspecified Qualified Code(s): F90.9 - Attention-deficit hyperactivity disorder, unspecified type (5) HTN (hypertension) Status: Chronic Qualifiers: Hypertension type: essential hypertension Qualified Code(s): I10 - Essential (primary) hypertension (6) Obesity Status: Chronic Qualifiers: Obesity type: unspecified obesity type Obesity severity: morbid Qualified Code(s): E66.01 - Morbid (severe) obesity due to excess calories (7) Type II diabetes mellitus Status: Chronic Qualifiers: Diabetes mellitus complication status: without complication Diabetes mellitus technician terminal and repeater insulin use: without technician terminal and repeater use Qualified Code(s): E11.9 - Type 2 diabetes mellitus without complications (8) Schizoaffective disorder Status: Suspected Qualifiers: Schizoaffective disorder type: bipolar Qualified Code(s): F25.0 - Schizoaffective disorder, bipolar type - AMA Did Patient Leave Against Medical Advice: Yes
== END 2016-05-24 21:15 | disposition left against medical advice (07) | DRG 894 ==
LOC: YASAS 09:11 → Y3N 14:08
PROVIDERS: ADMIT Internal Medicine; ATTEND Internal Medicine
PROC: HZ2ZZZZ Detoxification Services for Substance Abuse Treatment (ICD-10-PCS; principal; 2016-05-22)
DX: F10.230 Alcohol dependence with withdrawal, uncomplicated (principal); F14.20 Cocaine dependence, uncomplicated; F17.213 Nicotine dependence, cigarettes, with withdrawal; F90.9 Attention-deficit hyperactivity disorder, unspecified type; F25.0 Schizoaffective disorder, bipolar type; D64.9 Anemia, unspecified; J45.909 Unspecified asthma, uncomplicated; J43.9 Emphysema, unspecified; M54.42 Lumbago with sciatica, left side; M54.41 Lumbago with sciatica, right side; G89.29 Other chronic pain; M19.90 Unspecified osteoarthritis, unspecified site; I10 Essential (primary) hypertension; E66.01 Morbid (severe) obesity due to excess calories; Z68.35 Body mass index [BMI] 35.0-35.9, adult; E11.9 Type 2 diabetes mellitus without complications; G47.30 Sleep apnea, unspecified; R26.2 Difficulty in walking, not elsewhere classified
CPT/HCPCS: 36415; 80053; 81003; 81015; 85027; 86593; 87389; 93005; 93010

== ENCOUNTER 2018-11-06 09:11 | Inpatient (IN) | payer OTHER ==
[2018-11-06 11:06] VITALS: BMI 30.5
--- NOTE | 2018-11-06 12:19 | HP ---
CIWA Score Nausea/Vomitin Muscle Tremors: 4-Moderate,w/Arms Extend Anxiety: 4-Mod. Anxious/Guarded Agitation: 2 Paroxysmal Sweats: No Perspiration Orientation: 0-Oriented Tacttile Disturbances: 1-Very Mild Itch/Numbness Auditory Disturbances: 1-Very Mild Visual Disturbances: 1-Very Mild Sensitivity Headache: 2-Mild CIWA-Ar Total Score: 17 - Admission Criteria OASAS Guidelines: Admission for Medically Managed Detox: Requires at least one of the followin. CIWA greater than 12 2. Seizures within the past 24 hours 3. Delirium tremens within the past 24 hours 4. Hallucinations within the past 24 hours 5. Acute intervention needed for co occurring medical disorder 6. Acute intervention needed for co occurring psychiatric disorder 7. Severe withdrawal that cannot be handled at a lower level of care (continued vomiting, continued diarrhea, abnormal vital signs) requiring intravenous medication and/or fluids 8. Patient presents the following: CIWA greater than 12 Admission Criteria Met: Admission criteria met Admission ROS S - [facility] Chief Complaint: I want to stop drinking, I want a better life, I want to stop neglecting myself , I love myself Allergies/Adverse Reactions: Allergies Allergy/AdvReac Type Severity Reaction Status Date / Time Penicillins Allergy Severe Rash Verified 11/06/18 10:56 turkey Allergy Severe Hives Verified 11/06/18 10:56 IV CONTRAST Allergy Severe Hives Uncoded 11/06/18 10:56 SEA FOOD Allergy Severe Hives Uncoded 11/06/18 10:56 History of Present Illness: 58 yo gentleman here for detox from alcohol. This is one of several admissions for treatment - last time here for detox 2017- states he did well for a while and relapsed about 8 months ago. No seizures but does have black outs. States she drinks 'sun-up to sun-down and in between'. States when he tries to stop drinking he gets very shaky, nauseous and gets terrible headache. He was living in [facility] for a while and came back here when his brother was ill ( and ). He is getting medical care currently at [facility] and waiting psych appointment but previously was getting psych care in [place]. He is living with friends now but plans to go back to [place]. I called [facility] pharmacy to verify meds as patient wasn't sure but pharmacy is closed on the weekend. Exam Limitations: No Limitations - Ebola screening Have you traveled outside of the country in the last 21 days: No (N) Have you had contact with anyone from an Ebola affected area: No Do you have a fever: No - Review of Systems Constitutional: Loss of Appetite, Malaise, Changes in sleep, Weakness EENT: reports: Blurred Vision Respiratory: reports: No Symptoms reported Cardiac: reports: No Symptoms Reported GI: reports: Nausea, Poor Appetite, Indigestion, Abdominal cramping : reports: Frequency Musculoskeletal: reports: Back Pain, Muscle Pain Integumentary: reports: Dryness Neuro: reports: Headache, Numbness, Tremors Endocrine: reports: No Symptoms Reported Hematology: reports: Anemia Psychiatric: reports: Judgement Intact, Mood/Affect Appropiate, Orientated x3, Anxious Other Systems: Reviewed and Negative Patient History - Patient Medical History Hx Anemia: Yes (ON IRON) Hx Asthma: Yes (MDI) Hx Chronic Obstructive Pulmonary Disease (COPD): Yes (MDI) Hx Cancer: No Hx Cardiac Disorders: Yes (hx chest pain /angiogram) Hx Congestive Heart Failure: No Hx Hypertension: Yes Hx Hypercholesterolemia: Yes Hx Pacemaker: No HX Cerebrovascular Accident: Yes (LEFT SIDE CVA 04/2016-RESIDUAL WEAKNESS.) Hx Seizures: No Hx Dementia: No Hx Diabetes: Yes (insulin dependent since age 12) Hx Gastrointestinal Disorders: Yes (GERD) Hx Liver Disease: No Hx Genitourinary Disorders: No Hx Sexually Transmitted Disorders: No Hx Renal Disease (ESRD): No Hx Thyroid Disease: No Hx Human Immunodeficiency Virus (HIV): No (LAST 07/25 NEGATIVE) Hx Hepatitis C: No Hx Depression: Yes (hx meds and hospitalization) Hx Suicide Attempt: Yes (years ago 2012) Hx Bipolar Disorder: Yes ( ANXIETY DISORDER AND ADHD) Hx Schizophrenia: Yes Other Medical History: sleep apnea, chronic back pain - Patient Surgical History Past Surgical History: Yes Hx Neurologic Surgery: No Hx Cataract Extraction: No Hx Cardiac Surgery: Yes (angiogram) Hx Lung Surgery: No Hx Breast Surgery: No Hx Breast Biopsy: No Hx Abdominal Surgery: No Hx Appendectomy: Yes (umbilical hernia repair 2010; inguinal hernia repair 2014) Hx Cholecystectomy: No Hx Genitourinary Surgery: No Hx Section: No Hx Orthopedic Surgery: Yes (RIGHT ACHILLES SX DUE T SPORTS FX 1979, wrist laceration repair) Anesthesia Reaction: No - PPD History Previous Implant?: Yes Documented Results: Negative w/proof Implanted On Prior R Admission?: Yes Date: 07/24/15 Results: 0 mm PPD to be Administered?: Yes - Reproductive History Patient is a Female of Child Bearing Age (11 -55 yrs old): No - Smoking Cessation Smoking history: Current every day smoker Have you smoked in the past 12 months: Yes Aproximately how many cigarettes per day: 6 Hx Chewing Tobacco Use: No Initiated information on smoking cessation: Yes 'Breaking Loose' booklet given: 11/06/18 (give on floor) - Substance & Tx. History Hx Alcohol Use: Yes Hx Substance Use: Yes Substance Use Type: Alcohol, Cocaine Hx Substance Use Treatment: Yes (detox, rehab) - Substances abused Alcohol Substance route: Oral Frequency: Daily Amount used: 1/2 BOTTLE GIN, HENESSEY, 6 BOTTLES OF 40'S BEER Age of first use: 15 Date of last use: 11/06/18 Cocaine Substance route: Inhalation Frequency: 3-6 times per week Amount used: $20 Age of first use: 47 Date of last use: 11/04/18 Admission Physical Exam BHS - Vital Signs Vital Signs: Vital Signs - 24 hr 11/06/18 11:03 Temperature 98.5 F Pulse Rate 77 Respiratory 20 Rate Blood Pressure 118/64 - Physical General Appearance: Yes: Nourished, Appropriately Dressed, Moderate Distress, Tremorous, Anxious HEENTM: Yes: EOMI, Hearing grossly Normal, Normocephalic, Normal Voice, Pharynx Normal Respiratory: Yes: Normal Breath Sounds, No Respiratory Distress Neck: Yes: No masses,lesions,Nodules Breast: Yes: Breast Exam Deferred Cardiology: Yes: Regular Rhythm, Regular Rate Abdominal: Yes: Soft, Surgical Scar Genitourinary: Yes: Frequency Back: Yes: Decreased Range of Motion Musculoskeletal: Yes: Back pain, Muscle Pain Extremities: Yes: Other (uses cane to ambulate) Neurological: Yes: Fully Oriented, Alert, Normal Mood/Affect, Normal Response, Numbness, Other (left sided weakness from CVA) Integumentary: Yes: Normal Color, Dry, Warm, Other (peeling skin /itching between toes) Lymphatic: Yes: Within Normal Limits - Diagnostic (1) Alcohol dependence with uncomplicated withdrawal Current Visit: Yes Status: Acute (2) Cocaine dependence Current Visit: Yes Status: Acute Qualifiers: Substance use status: uncomplicated Qualified Code(s): F14.20 - Cocaine dependence, uncomplicated (3) Anemia Current Visit: Yes Status: Chronic Qualifiers: Anemia type: unspecified type Qualified Code(s): D64.9 - Anemia, unspecified (4) Asthma Current Visit: Yes Status: Chronic Qualifiers: Asthma severity: unspecified severity Asthma persistence: intermittent Asthma complication type: uncomplicated Qualified Code(s): J45.20 - Mild intermittent asthma, uncomplicated (5) COPD (chronic obstructive pulmonary disease) Current Visit: Yes Status: Chronic Qualifiers: COPD type: emphysema Emphysema type: unspecified Qualified Code(s): J43.9 - Emphysema, unspecified (6) Chronic bilateral low back pain with bilateral sciatica Current Visit: Yes Status: Chronic (7) DJD (degenerative joint disease) Current Visit: Yes Status: Chronic Qualifiers: Osteoarthritis location: unspecified site Osteoarthritis type: unspecified Qualified Code(s): M19.90 - Unspecified osteoarthritis, unspecified site (8) HTN (hypertension) Current Visit: Yes Status: Chronic Qualifiers: Hypertension type: essential hypertension Qualified Code(s): I10 - Essential (primary) hypertension (9) Sleep apnea Current Visit: Yes Status: Chronic Qualifiers: Sleep apnea type: obstructive Qualified Code(s): G47.33 - Obstructive sleep apnea (adult) (pediatric) (10) Use of cane as ambulatory aid Current Visit: Yes Status: Chronic (11) Insulin dependent diabetes mellitus Current Visit: Yes Status: Chronic (12) History of cerebrovascular accident (CVA) with residual deficit Current Visit: Yes Status: Chronic (13) Tinea pedis Current Visit: Yes Status: Chronic Qualifiers: Laterality: bilateral Qualified Code(s): B35.3 - Tinea pedis Cleared for Admission S - Detox or Rehab [facility] Level of Care: Medically Managed Detox Regimen/Protocol: Librium Breathalyzer - Breathalyzer Breathalyzer: 0 Urine Drug Screen - Test Device Lot number: [id number] Expiration date: 07/09/20 - Control Is test valid?: Yes - Results Drug screen NEGATIVE: Yes Urine drug screen results: KRISTI-Cocaine Inpatient Rehab Admission - Rehab Decision to Admit Inpatient rehab admission?: No
[2018-11-06] MEDS ORDERED: BISMUTH SUBSALICYLATE 524 MG/30 ML UD PO PRN (12:37)
[2018-11-06] MEDS ORDERED: MAGNESIUM HYDROX 2400MG/30ML ORAL SUSPENSION 30 ML CUP PO PRN (12:37)
[2018-11-06] MEDS ORDERED: MENTHOL/PHENOL 1 EACH UD MM PRN (12:37)
[2018-11-06] MEDS ORDERED: ACETAMINOPHEN 325 MG TABLET (FP) PO PRN ×2 (12:37)
[2018-11-06] MEDS ORDERED: MAGNESIUM CITRATE 300 ML BOTTLE PO PRN (12:37)
[2018-11-06] MEDS ORDERED: MAG HYDROX/AL HYDROX/SIMETH 30 ML UNIT-DOSE CUP PO PRN (12:37)
[2018-11-06] MEDS ORDERED: hydrOXYzine PAMOATE 25 MG CAPSULE (FP) PO PRN (12:37)
[2018-11-06] MEDS ORDERED: MELATONIN 5 MG TABLETS PO PRN (12:37)
[2018-11-06] MEDS ORDERED: guaiFENesin 200 MG/10 ML 10 ML UNIT-DOSE CUPS PO PRN (12:37)
[2018-11-06] MEDS ORDERED: METHOCARBAMOL 500 MG TABLET PO PRN (12:37)
[2018-11-06] MEDS ORDERED: NICOTINE POLACRILEX 4 MG GUM BUC PRN (12:37)
[2018-11-06] MEDS ORDERED: chlordiazePOXIDE HCL 25 MG CAPSULE PO PRN (12:37)
[2018-11-06] MEDS ORDERED: ALBUTEROL SO4 8 GM HFA INHALER IH PRN (12:39)
[2018-11-06] MEDS: chlordiazePOXIDE HCL 25 MG CAPSULE PO ONE ×2 (14:25→14:29)
[2018-11-06] MEDS: LIDOCAINE 5% TOPICAL PATCH TP SCH (14:25)
[2018-11-06] MEDS: FERROUS SO4 325 MG TABLET (FP) PO SCH (14:25)
[2018-11-06] MEDS: TOLNAFTATE 1% CREAM 15 GM TUBE TP SCH ×2 (14:37→22:02)
[2018-11-06] MEDS: INSULIN SLIDING SCALE (NOVOLOG) 1 VIAL SQ SCH ×2 (17:27→22:01)
[2018-11-06] MEDS: chlordiazePOXIDE HCL 25 MG CAPSULE PO SCH ×2 (17:28→22:00)
[2018-11-06] MEDS ORDERED: traZODone HCL 150 MG TABLET PO ONE (22:00)
[2018-11-06] MEDS: ATORVASTATIN CA 20 MG TABLET (FP) PO SCH (22:00)
[2018-11-06] MEDS: Insulin (LOG) Aspart 100 UNITS/ML VIAL SQ SCH (22:01)
[2018-11-06] MEDS: THIAMINE HCL 100 MG TABLET (FP) PO SCH (22:01)
[2018-11-06] MEDS: LIDOCAINE PATCH REMOVAL MC SCH (22:02)
[2018-11-07] MEDS: chlordiazePOXIDE HCL 25 MG CAPSULE PO SCH ×4 (07:02→22:20)
[2018-11-07] MEDS: INSULIN SLIDING SCALE (NOVOLOG) 1 VIAL SQ SCH ×4 (07:03→22:19)
--- NOTE | 2018-11-07 09:21 | CONSULT ---
[facility] Psychiatric Consult - Data Date of interview: 11/07/18 Admission source: [facility] Identifying data: Ambulance Paramedic approached patient three times for psychiatric consultation. Patient refused. Stated " I dont want to talk today. Maybe tomorrow." Psychiatric consultation refused.
[2018-11-07] MEDS: ASPIRIN COATED 81 MG TABLET.EC PO SCH (10:44)
[2018-11-07] MEDS: PRENATAL VITAMINS W/ FOLIC ACID TABLET (FP) PO SCH (10:44)
[2018-11-07] MEDS: FERROUS SO4 325 MG TABLET (FP) PO SCH (10:45)
[2018-11-07] MEDS: LISINOPRIL 10 MG TABLET (FP) PO SCH (10:45)
[2018-11-07] MEDS: TOLNAFTATE 1% CREAM 15 GM TUBE TP SCH ×2 (10:46→22:20)
[2018-11-07] MEDS: Insulin (LOG) Aspart 100 UNITS/ML VIAL SQ SCH ×2 (10:46→22:19)
--- NOTE | 2018-11-07 11:36 | PN ---
S CIWA - CIWA Score Nausea/Vomitin-Mild Nausea/No Vomiting Muscle Tremors: 3 Anxiety: 3 Agitation: 3 Paroxysmal Sweats: 2 Orientation: 1-Uncertain about Date Tacttile Disturbances: 1-Very Mild Itch/Numbness Auditory Disturbances: 0-None Visual Disturbances: 0-None Headache: 0-None Present CIWA-Ar Total Score: 14 S Progress Note (SOAP) Subjective: doing well with librium detox regimen ambulating with cane on hallway steady gait Objective: 11/07/18 11:36 Vital Signs Temperature 96.1 F L 11/07/18 09:45 Pulse Rate 60 11/07/18 09:45 Respiratory Rate 18 11/07/18 09:45 Blood Pressure 118/75 11/07/18 09:45 O2 Sat by Pulse Oximetry (%) Laboratory Last Values POC Glucometer 137 UNITS (80-120) 11/06/18 16:24 11/07/18 11:38 latest lab 2017 order admission lab today Assessment: 11/07/18 11:38 alcohol withdrawal sx Plan: continue librium detox regimen
[2018-11-07] MEDS: LIDOCAINE 5% TOPICAL PATCH TP SCH (14:04)
[2018-11-07] MEDS: LIDOCAINE PATCH REMOVAL MC SCH (22:19)
[2018-11-07] MEDS: ATORVASTATIN CA 20 MG TABLET (FP) PO SCH (22:19)
[2018-11-07] MEDS: THIAMINE HCL 100 MG TABLET (FP) PO SCH (22:20)
[2018-11-08] MEDS: chlordiazePOXIDE HCL 25 MG CAPSULE PO SCH ×3 (05:31→18:59)
[2018-11-08] MEDS: INSULIN SLIDING SCALE (NOVOLOG) 1 VIAL SQ SCH ×3 (08:07→17:42)
--- NOTE | 2018-11-08 09:50 | PN ---
S CIWA - CIWA Score Nausea/Vomitin-No Nausea/No Vomiting Muscle Tremors: 2 Anxiety: 2 Agitation: 3 Paroxysmal Sweats: 1-Minimal Palms Moist Orientation: 0-Oriented Tacttile Disturbances: 0-None Auditory Disturbances: 1-Very Mild Visual Disturbances: 0-None Headache: 1-Very Mild CIWA-Ar Total Score: 10 BHS Progress Note (SOAP) Subjective: doing well with librium detox regimen ambulating with cane on hallway social with peers in day room less tremor mild anxiety Objective: 11/08/18 09:48 Vital Signs Temperature 96.6 F L 11/08/18 09:09 Pulse Rate 52 L 11/08/18 09:09 Respiratory Rate 16 11/08/18 09:09 Blood Pressure 89/58 L 11/08/18 09:09 O2 Sat by Pulse Oximetry (%) Laboratory Last Values POC Glucometer 95 UNITS (80-120) 11/08/18 05:33 lab pending Assessment: 11/08/18 09:49 alcohol withdrawal sx Plan: continue librium detox regimen
[2018-11-08] MEDS: LISINOPRIL 10 MG TABLET (FP) PO SCH (10:41)
[2018-11-08] MEDS: TOLNAFTATE 1% CREAM 15 GM TUBE TP SCH (10:41)
[2018-11-08] MEDS: ASPIRIN COATED 81 MG TABLET.EC PO SCH (10:42)
[2018-11-08] MEDS: FERROUS SO4 325 MG TABLET (FP) PO SCH (10:43)
[2018-11-08] MEDS: LIDOCAINE 5% TOPICAL PATCH TP SCH (10:43)
[2018-11-08] MEDS: Insulin (LOG) Aspart 100 UNITS/ML VIAL SQ SCH (10:53)
[2018-11-08] MEDS: PRENATAL VITAMINS W/ FOLIC ACID TABLET (FP) PO SCH (10:54)
[2018-11-08 11:40] LABS: HEMATOCRIT 40.1 % (35.4-49); HEMOGLOBIN 13.6 GM/dL (11.7-16.9); MCH 31.3 pg (25.7-33.7); MCHC 33.9 g/dl (32.0-35.9); MEAN CELL VOLUME 92.2 fl (80-96); MEAN PLT VOLUME 9.4 fl (7.5-11.1); PLATELET COUNT 211 K/MM3 (134-434); RBC 4.35 M/mm3 (4.00-5.60); RDW 13.9 % (11.9-15.9); WHITE BLOOD COUNT 4.2 K/mm3 (4.0-10.0)
[2018-11-08 11:59] LABS: ALBUMIN 3.3 g/dl (3.4-5.0); BILIRUBIN,TOTAL 0.3 mg/dL (0.2-1); BLOOD UREA NITROGEN 18.1 mg/dL (7-18); CALCIUM 8.6 mg/dL (8.5-10.1); POTASSIUM 3.8 mmol/L (3.5-5.1); TOT PROT 6.7 g/dl (6.4-8.2)
[2018-11-08 17:36] VITALS: BP 114/71; PULSE 62; TEMP 97.3
--- NOTE | 2018-11-08 18:49 | DS ---
[facility] Detox Discharge Summary Admission Date: 11/06/18 Discharge Date: 11/08/18 - History Present History: Alcohol Dependence, Cocaine Dependence Additional Comments: Admitted w/ c/o alcohol withdrawal. Pertinent Past History: PMHX: DM; Asthma; COPD; HTN; LBP; CVA; DJD; Anemia - Physical Exam Results Vital Signs: Vital Signs Temperature 97.3 F L 11/08/18 17:36 Pulse Rate 62 11/08/18 17:36 Respiratory Rate 18 11/08/18 17:36 Blood Pressure 114/71 11/08/18 17:36 O2 Sat by Pulse Oximetry (%) Pertinent Admission Physical Exam Findings: Admitted w/ alcohol withdrawal symptoms. Tinea Pedis noted on PE. Laboratory Last Values WBC 4.2 K/mm3 (4.0-10.0) 11/08/18 08:50 RBC 4.35 M/mm3 (4.00-5.60) 11/08/18 08:50 Hgb 13.6 GM/dL (11.7-16.9) 11/08/18 08:50 Hct 40.1 % (35.4-49) D 11/08/18 08:50 MCV 92.2 fl (80-96) 11/08/18 08:50 MCH 31.3 pg (25.7-33.7) D 11/08/18 08:50 MCHC 33.9 g/dl (32.0-35.9) 11/08/18 08:50 RDW 13.9 % (11.9-15.9) D 11/08/18 08:50 Plt Count 211 K/MM3 (134-434) D 11/08/18 08:50 MPV 9.4 fl (7.5-11.1) 11/08/18 08:50 Sodium 143 mmol/L (136-145) 11/08/18 08:50 Potassium 3.8 mmol/L (3.5-5.1) 11/08/18 08:50 Chloride 109 mmol/L (98-107) H 11/08/18 08:50 Carbon Dioxide 27 mmol/L (21-32) 11/08/18 08:50 Anion Gap 7 MMOL/L (8-16) L 11/08/18 08:50 BUN 18.1 mg/dL (7-18) H 11/08/18 08:50 Creatinine 1.0 mg/dL (0.55-1.3) 11/08/18 08:50 Est GFR (CKD-EPI)AfAm 96.40 11/08/18 08:50 Est GFR (CKD-EPI)NonAf 83.18 11/08/18 08:50 POC Glucometer 98 UNITS (80-120) 11/08/18 17:03 Random Glucose 85 mg/dL (74-106) 11/08/18 08:50 Calcium 8.6 mg/dL (8.5-10.1) 11/08/18 08:50 Total Bilirubin 0.3 mg/dL (0.2-1) 11/08/18 08:50 AST 22 U/L (15-37) 11/08/18 08:50 ALT 35 U/L (13-61) 11/08/18 08:50 Alkaline Phosphatase 105 U/L (45-117) 11/08/18 08:50 Ammonia 36.90 umol/L (11-32) H 11/08/18 12:20 Total Protein 6.7 g/dl (6.4-8.2) 11/08/18 08:50 Albumin 3.3 g/dl (3.4-5.0) L 11/08/18 08:50 RPR Titer Nonreactive (NONREACTIVE) 11/08/18 08:50 Labs reviewed. - Treatment Hospital Course: Detox Protocol Followed, Responded well, Discharged Condition Good - Medication Discharge Medications: Ambulatory Orders Cyclobenzaprine HCl [Flexeril -] 10 mg PO TID 07/22/15 Gabapentin 600 mg PO TID 07/22/15 traZODone HCL [Desyrel -] 150 mg PO HS 07/22/15 Albuterol Sulfate Inhaler - [Ventolin Hfa Inhaler -] 2 inh IH Q4H PRN 05/22/16 Lurasidone HCl [Latuda] 120 mg PO DAILY 11/06/18 Aspirin [Ecotrin] 81 mg PO DAILY 15 Days #15 tablet. 11/09/18 Ferrous Sulfate [Feosol] 325 mg PO DAILY #14 tablet 11/09/18 Insulin (LOG) Aspart [NovoLOG -] 7 units SQ BID #1 vial 11/09/18 Insulin Glargine,Hum.rec.anlog [Lantus Solostar PEN -] 10 units SQ HS #1 ins 02/27 Lisinopril 10 mg PO DAILY #15 tablet 11/09/18 Nicotine Polacrilex [Nicorelief -] 4 mg BUC Q2H PRN 15 Days #90 gum 11/09/18 Simvastatin [Zocor -] 40 mg PO HS #1 tablet 11/09/18 Tolnaftate 1% Cream [Tinactin 1% Cream -] 1 applic TP BID 15 Days #1 cream..g. 11/09/18 - Diagnosis (1) Alcohol dependence with uncomplicated withdrawal Status: Acute (2) Cigarette nicotine dependence Status: Acute Qualifiers: Substance use status: uncomplicated Qualified Code(s): F17.210 - Nicotine dependence, cigarettes, uncomplicated (3) Cocaine dependence Status: Acute Qualifiers: Substance use status: uncomplicated Qualified Code(s): F14.20 - Cocaine dependence, uncomplicated (4) Anemia Status: Chronic Qualifiers: Anemia type: unspecified type Qualified Code(s): D64.9 - Anemia, unspecified (5) Asthma Status: Chronic Qualifiers: Asthma severity: unspecified severity Asthma persistence: intermittent Asthma complication type: uncomplicated Qualified Code(s): J45.20 - Mild intermittent asthma, uncomplicated (6) COPD (chronic obstructive pulmonary disease) Status: Chronic Qualifiers: COPD type: emphysema Emphysema type: unspecified Qualified Code(s): J43.9 - Emphysema, unspecified (7) Chronic bilateral low back pain with bilateral sciatica Status: Chronic (8) DJD (degenerative joint disease) Status: Chronic Qualifiers: Osteoarthritis location: unspecified site Osteoarthritis type: unspecified Qualified Code(s): M19.90 - Unspecified osteoarthritis, unspecified site (9) HTN (hypertension) Status: Chronic Qualifiers: Hypertension type: essential hypertension Qualified Code(s): I10 - Essential (primary) hypertension (10) History of cerebrovascular accident (CVA) with residual deficit Status: Chronic (11) Insulin dependent diabetes mellitus Status: Chronic (12) Obesity Status: Chronic Qualifiers: Obesity type: unspecified obesity type Qualified Code(s): E66.01 - Morbid ( severe) obesity due to excess calories (13) Sleep apnea Status: Chronic Qualifiers: Sleep apnea type: obstructive Qualified Code(s): G47.33 - Obstructive sleep apnea (adult) (pediatric) (14) Tinea pedis Status: Chronic Qualifiers: Laterality: bilateral Qualified Code(s): B35.3 - Tinea pedis (15) Use of cane as ambulatory aid Status: Chronic - AMA Did Patient Leave Against Medical Advice: No
--- NOTE | 2018-11-08 18:50 | PN ---
[facility] Progress Note Note: Alert and oriented gait steady w/cane. States no nausea or vomiting. Denies M[place], CIWA: ANXIETY=2; AGITATION = 2: Total score = 4 Wants to leave early for family emergency. Refused to stay despite encouragement.
[2018-11-09] MEDS ORDERED: chlordiazePOXIDE HCL 10 MG CAPSULE PO PRN
[2018-11-09] MEDS ORDERED: chlordiazePOXIDE HCL 10 MG CAPSULE PO SCH (05:00)
[2018-11-10] MEDS ORDERED: chlordiazePOXIDE HCL 10 MG CAPSULE PO SCH (05:00)
[2018-11-11] MEDS ORDERED: chlordiazePOXIDE HCL 10 MG CAPSULE PO ONE (05:00)
== END 2018-11-08 19:03 | disposition home or self-care (01) | DRG 774 ==
LOC: YASAS 09:11 → Y3N 13:11
PROVIDERS: ADMIT Surgery; ATTEND Surgery
PROC: HZ2ZZZZ Detoxification Services for Substance Abuse Treatment (ICD-10-PCS; principal; 2018-11-06)
DX: F10.230 Alcohol dependence with withdrawal, uncomplicated (principal); F14.20 Cocaine dependence, uncomplicated; F17.210 Nicotine dependence, cigarettes, uncomplicated; I10 Essential (primary) hypertension; E78.00 Pure hypercholesterolemia, unspecified; D64.9 Anemia, unspecified; J45.20 Mild intermittent asthma, uncomplicated; J43.9 Emphysema, unspecified; M54.42 Lumbago with sciatica, left side; M54.41 Lumbago with sciatica, right side; G89.29 Other chronic pain; E11.9 Type 2 diabetes mellitus without complications; M19.90 Unspecified osteoarthritis, unspecified site; G47.33 Obstructive sleep apnea (adult) (pediatric); B35.3 Tinea pedis; E66.01 Morbid (severe) obesity due to excess calories; R26.2 Difficulty in walking, not elsewhere classified; Z99.89 Dependence on other enabling machines and devices; I69.354 Hemiplegia and hemiparesis following cerebral infarction affecting left non-dominant side; Z68.30 Body mass index [BMI] 30.0-30.9, adult; Z79.4 Long term (current) use of insulin; Z88.0 Allergy status to penicillin; Z91.013 Allergy to seafood; Z91.018 Allergy to other foods; Z91.041 Radiographic dye allergy status; Z91.5 Personal history of self-harm
CPT/HCPCS: 36415; 80053; 82140; 82962; 85027; 86593

== ENCOUNTER 2020-03-06 13:04 | Inpatient (IN) | payer OTHER ==
[2020-03-06 15:42] VITALS: BMI 34.2
[2020-03-06] MEDS ORDERED: ACETAMINOPHEN 325 MG TABLET (FP) PO PRN (17:28)
[2020-03-06] MEDS ORDERED: LOPERAMIDE HCL 2 MG CAPSULE PO PRN (17:28)
[2020-03-06] MEDS ORDERED: MAG HYDROX/AL HYDROX/SIMETH 30 ML UNIT-DOSE CUP PO PRN (17:28)
[2020-03-06] MEDS ORDERED: IBUPROFEN 400 MG TABLET (FP) PO PRN (17:28)
[2020-03-06] MEDS ORDERED: guaiFENesin 200 MG/10 ML 10 ML UNIT-DOSE CUPS PO PRN (17:28)
[2020-03-06] MEDS ORDERED: P-EPHED 60MG/TRIPROLIDI 2.5MG TABLET PO PRN (17:28)
[2020-03-06] MEDS ORDERED: MAGNESIUM HYDROX 2400MG/30ML ORAL SUSPENSION 30 ML CUP PO PRN (17:28)
[2020-03-06] MEDS ORDERED: MAGNESIUM CITRATE 300 ML BOTTLE PO PRN (17:28)
[2020-03-06] MEDS: NICOTINE POLACRILEX 2 MG GUM BC PRN (19:03)
[2020-03-06] MEDS: NICOTINE 14 MG/24 HOURS TOPICAL PATCH TD SCH (19:03)
[2020-03-06] MEDS ORDERED: TUBERCULIN PPD 5 TU/0.1ML VIAL ID ONE (19:05)
[2020-03-06] MEDS ORDERED: INSULIN (NOVOLOG) ASPART 100 UNITS/ML 10ML VIAL ONE (21:34)
[2020-03-06] MEDS: INSULIN SLIDING SCALE (NOVOLOG) 1 VIAL SQ SCH (21:36)
[2020-03-06] MEDS ORDERED: MELATONIN 5 MG TABLETS PO SCH (22:00)
[2020-03-06] MEDS ORDERED: THIAMINE HCL 100 MG TABLET (FP) PO SCH (22:00)
[2020-03-07 03:15] LABS: PH,URINE 5.5 (5.0-8.0); URINE APPEARANCE CLEAR; URINE BILIRUBIN NEGATIVE (NEGATIVE); URINE COLOR YELLOW; URINE GLUCOSE (UA) NEGATIVE (NEGATIVE); URINE KETONE TRACE (NEGATIVE); URINE LEUK ESTERASE NEGATIVE (NEGATIVE); URINE NITRITE NEGATIVE (NEGATIVE); URINE PROTEIN NEGATIVE (NEGATIVE); URINE UROBILINOGEN 0.2 mg/dL (0.2-1.0)
[2020-03-07] MEDS: INSULIN SLIDING SCALE (NOVOLOG) 1 VIAL SQ SCH ×2 (06:37→12:00)
[2020-03-07 06:56] VITALS: BP 114/70; PULSE 59; TEMP 98.1
[2020-03-07] MEDS ORDERED: PRENATAL VITAMINS W/ FOLIC ACID TABLET (FP) PO SCH (10:00)
[2020-03-07] MEDS: NICOTINE 14 MG/24 HOURS TOPICAL PATCH TD SCH (10:20)
[2020-03-07] MEDS: NICOTINE POLACRILEX 2 MG GUM BC PRN (10:20)
== END 2020-03-07 16:35 | disposition left against medical advice (07) | DRG 894 ==
LOC: YASAS 13:04 → Y3W 16:26
PROVIDERS: ADMIT Allergy & Immunology; ATTEND Allergy & Immunology
PROC: HZ2ZZZZ Detoxification Services for Substance Abuse Treatment (ICD-10-PCS; principal; 2020-03-06)
DX: F10.20 Alcohol dependence, uncomplicated (principal); F14.20 Cocaine dependence, uncomplicated; F17.210 Nicotine dependence, cigarettes, uncomplicated; F31.9 Bipolar disorder, unspecified; F41.9 Anxiety disorder, unspecified; F90.9 Attention-deficit hyperactivity disorder, unspecified type; I25.10 Atherosclerotic heart disease of native coronary artery without angina pectoris; I10 Essential (primary) hypertension; R01.1 Cardiac murmur, unspecified; E11.9 Type 2 diabetes mellitus without complications; Z79.4 Long term (current) use of insulin; J45.909 Unspecified asthma, uncomplicated; J43.9 Emphysema, unspecified; M54.41 Lumbago with sciatica, right side; M54.42 Lumbago with sciatica, left side; N62 Hypertrophy of breast; E66.9 Obesity, unspecified; Z68.34 Body mass index [BMI] 34.0-34.9, adult; I69.90 Unspecified sequelae of unspecified cerebrovascular disease; Z88.0 Allergy status to penicillin; Z91.041 Radiographic dye allergy status; Z91.013 Allergy to seafood; Z91.018 Allergy to other foods
CPT/HCPCS: 81003; 82962

== ENCOUNTER 2020-08-24 12:06 | Inpatient (IN) | payer OTHER ==
[2020-08-24] MEDS ORDERED: IBUPROFEN 400 MG TABLET (FP) PO PRN (15:32)
[2020-08-24] MEDS ORDERED: MAG HYDROX/AL HYDROX/SIMETH 30 ML UNIT-DOSE CUP PO PRN (15:32)
[2020-08-24] MEDS ORDERED: P-EPHED 60MG/TRIPROLIDI 2.5MG TABLET PO PRN (15:32)
[2020-08-24] MEDS ORDERED: MAGNESIUM CITRATE 300 ML BOTTLE PO PRN (15:32)
[2020-08-24] MEDS ORDERED: MAGNESIUM HYDROX 2400MG/30ML ORAL SUSPENSION 30 ML CUP PO PRN (15:32)
[2020-08-24] MEDS ORDERED: LOPERAMIDE HCL 2 MG CAPSULE PO PRN (15:32)
[2020-08-24] MEDS ORDERED: guaiFENesin 200 MG/10 ML 10 ML UNIT-DOSE CUPS PO PRN (15:32)
[2020-08-24] MEDS ORDERED: ACETAMINOPHEN 325 MG TABLET (FP) PO PRN (15:32)
[2020-08-24] MEDS ORDERED: NICOTINE POLACRILEX 2 MG GUM BC PRN (15:32)
[2020-08-24 16:01] VITALS: BMI 32.8
[2020-08-24] MEDS: MELATONIN 5 MG TABLETS PO SCH (22:24)
[2020-08-24] MEDS: NICOTINE 7 MG/24 HOURS TOPICAL PATCH TD SCH (22:24)
[2020-08-24] MEDS: hydrOXYzine PAMOATE 25 MG CAPSULE (FP) PO SCH (22:25)
[2020-08-24] MEDS: THIAMINE HCL 100 MG TABLET (FP) PO SCH (22:25)
[2020-08-25] MEDS: hydrOXYzine PAMOATE 25 MG CAPSULE (FP) PO SCH ×5 (06:15→21:47)
[2020-08-25] MEDS: PRENATAL VITAMINS W/ FOLIC ACID TABLET (FP) PO SCH (10:02)
[2020-08-25] MEDS: NICOTINE 7 MG/24 HOURS TOPICAL PATCH TD SCH (10:03)
[2020-08-25] MEDS: MELATONIN 5 MG TABLETS PO SCH (21:47)
[2020-08-25] MEDS: THIAMINE HCL 100 MG TABLET (FP) PO SCH (21:49)
[2020-08-26] MEDS: hydrOXYzine PAMOATE 25 MG CAPSULE (FP) PO SCH ×2 (06:33→10:00)
[2020-08-26 07:39] VITALS: TEMP 97
[2020-08-26] MEDS: NICOTINE 7 MG/24 HOURS TOPICAL PATCH TD SCH (10:00)
[2020-08-26] MEDS: PRENATAL VITAMINS W/ FOLIC ACID TABLET (FP) PO SCH (10:00)
[2020-08-26] MEDS ORDERED: ALBUTEROL SO4 HFA INHALER IH PRN (11:48)
[2020-08-26] MEDS ORDERED: LISINOPRIL 10 MG TABLET PO SCH ×2 (12:00→12:01)
[2020-08-26 12:06] VITALS: BP 137/64; PULSE 64
[2020-08-26] MEDS ORDERED: GABAPENTIN 300 MG CAPSULE PO SCH (14:00)
[2020-08-26] MEDS ORDERED: INSULIN (LEVEMIR) 100 UNITS/ML UNITS SQ SCH ×2 (22:00)
== END 2020-08-26 13:35 | disposition left against medical advice (07) | DRG 894 ==
LOC: YASAS 12:06 → Y3W 20:07
PROVIDERS: ADMIT Allergy & Immunology; ATTEND Allergy & Immunology
PROC: HZ42ZZZ Group Counseling for Substance Abuse Treatment, Cognitive-Behavioral (ICD-10-PCS; principal; 2020-08-24)
DX: F10.20 Alcohol dependence, uncomplicated (principal); F14.20 Cocaine dependence, uncomplicated; I69.854 Hemiplegia and hemiparesis following other cerebrovascular disease affecting left non-dominant side; F17.210 Nicotine dependence, cigarettes, uncomplicated; F25.9 Schizoaffective disorder, unspecified; F31.9 Bipolar disorder, unspecified; F41.9 Anxiety disorder, unspecified; I10 Essential (primary) hypertension; G62.9 Polyneuropathy, unspecified; G47.30 Sleep apnea, unspecified; J43.9 Emphysema, unspecified; E11.9 Type 2 diabetes mellitus without complications; Z79.4 Long term (current) use of insulin; E66.9 Obesity, unspecified; Z68.32 Body mass index [BMI] 32.0-32.9, adult; Z88.0 Allergy status to penicillin; Z91.041 Radiographic dye allergy status; Z91.013 Allergy to seafood; Z91.018 Allergy to other foods
CPT/HCPCS: 82962; C9803; U0003; U0005

== ENCOUNTER 2023-09-10 13:30 | Inpatient (IN) | payer OTHER ==
[2023-09-10 15:00] VITALS: BMI 27.3
[2023-09-10] MEDS ORDERED: BENZOCAINE/MENTHOL (CHLORASEPTIC ) LOZENGE MM PRN (15:34)
[2023-09-10] MEDS ORDERED: hydrOXYzine PAMOATE 25 MG CAPSULE (FP) PO PRN (15:34)
[2023-09-10] MEDS ORDERED: ONDANSETRON *ODT* 4 MG TABLET SL PRN (15:34)
[2023-09-10] MEDS ORDERED: ACETAMINOPHEN 325 MG TABLET (FP) PO PRN (15:34)
[2023-09-10] MEDS ORDERED: MAG HYDROX/AL HYDROX/SIMETH 30 ML UNIT-DOSE CUP PO PRN (15:34)
[2023-09-10] MEDS ORDERED: POLYETHYLENE GLYCOL (HEALTHYLAX) 3350 17 GM PACKET PO PRN (15:34)
[2023-09-10] MEDS ORDERED: MAGNESIUM HYDROX 2400MG/30ML ORAL SUSPENSION 30 ML CUP PO PRN (15:34)
[2023-09-10] MEDS ORDERED: DICYCLOMINE HCL 10 MG CAPSULE PO PRN (15:34)
[2023-09-10] MEDS ORDERED: NALOXONE (NARCAN) HCL 4 MG/0.1 ML SPRAY NS PRN (15:34)
[2023-09-10] MEDS ORDERED: NALOXONE HCL 0.4 MG/ML VIAL IM PRN (15:34)
[2023-09-10] MEDS ORDERED: LORazepam 1 MG TABLET PO PRN (15:34)
[2023-09-10] MEDS ORDERED: IBUPROFEN 400 MG TABLET (FP) PO PRN (15:34)
[2023-09-10] MEDS ORDERED: IBUPROFEN 600 MG TABLET (FP) PO PRN (15:34)
[2023-09-10] MEDS ORDERED: BENZONATATE 200 MG CAPSULE PO PRN (15:34)
[2023-09-10] MEDS ORDERED: guaiFENesin 600 MG TABLET.ER (FP) PO PRN (15:34)
[2023-09-10] MEDS ORDERED: BISMUTH SUBSALICYLATE 524 MG/30 ML PO PRN (15:34)
[2023-09-10] MEDS ORDERED: METHOCARBAMOL 500 MG TABLET PO PRN (15:34)
[2023-09-10] MEDS: INSULIN ASPART SLIDING SCALE (NOVOLOG) 1 VIAL SQ SCH (16:30)
[2023-09-10] MEDS: LORazepam 0.5 MG TABLET PO ONE (16:32)
[2023-09-10] MEDS ORDERED: PRENATAL VITAMINS W/ FOLIC ACID TABLET (FP) PO ONE (16:36)
[2023-09-10] MEDS: PRENATAL VITAMINS W/ FOLIC ACID TABLET (FP) PO SCH (18:12)
[2023-09-10] MEDS: LORazepam 2 MG TABLET PO SCH (18:12)
[2023-09-10] MEDS: THIAMINE 100 MG TABLET PO SCH (23:27)
[2023-09-10] MEDS: MELATONIN 5 MG TABLETS PO SCH (23:27)
[2023-09-11] MEDS ORDERED: ALBUTEROL SO4 HFA INHALER IH PRN (07:11)
[2023-09-11] MEDS: INSULIN (NOVOLOG) ASPART 100 UNITS/ML 10ML VIAL SQ SCH (08:07)
[2023-09-11] MEDS: FERROUS SO4 325 MG TABLET (FP) PO SCH (08:09)
[2023-09-11] MEDS: BUDESONIDE/FORMETEROL FUMARATE 80/4.5 mcg INHALER IH SCH (09:38)
[2023-09-11] MEDS: LISINOPRIL 10 MG TABLET PO SCH (09:38)
[2023-09-11] MEDS ORDERED: BUDESONIDE/FORMOTEROL FUMARATE 80-4.5 MCG (10.3 GM INHALER) IH SCH (10:00)
[2023-09-11 11:44] LABS: HEMATOCRIT 19.3 % (35.4-49); MEAN CELL VOLUME 66.9 fl (80-96); MEAN PLT VOLUME 8.6 fl (7.5-11.1); PLATELET COUNT 304 10^3/uL (134-434); RBC 2.88 M/mm3 (4.00-5.60); RDW 22.5 % (11.9-15.9); WHITE BLOOD COUNT 4.6 K/mm3 (4.0-10.0)
[2023-09-11 11:52] LABS: HEMOGLOBIN 5.8 GM/dL (11.7-16.9)
[2023-09-11 13:06] LABS: CHLORIDE 111 mmol/L (98-107); POTASSIUM 4.2 mmol/L (3.5-5.1); SODIUM 141 mmol/L (136-145)
[2023-09-11 13:11] LABS: ALBUMIN 3.1 g/dl (3.4-5.0); ANION GAP 6 mmol/L (4-13); CALCIUM 8.7 mg/dL (8.5-10.1); CO2 25 mmol/L (21-32); GLUCOSE,RANDOM 110 mg/dL (74-106)
[2023-09-11 13:13] LABS: SGPT/ALT 24 U/L (13-61)
[2023-09-11 13:14] LABS: CREATININE 0.9 mg/dL (0.55-1.3); SGOT/AST 25 U/L (15-37)
[2023-09-11 13:15] LABS: TOT PROT 6.4 g/dl (6.4-8.2)
[2023-09-11 13:17] LABS: BILIRUBIN,TOTAL 0.9 mg/dL (0.2-1)
[2023-09-11 13:18] LABS: ALK PHOS 82 U/L (45-117)
[2023-09-11] MEDS: INSULIN (LEVEMIR) 100 UNITS/ML UNITS SQ SCH (22:43)
[2023-09-12] MEDS: LORazepam 1 MG TABLET PO SCH (05:35)
[2023-09-12] MEDS: LOPERAMIDE HCL 2 MG CAPSULE PO PRN (07:20)
[2023-09-12 09:03] VITALS: BP 104/57; PULSE 62; RESP 18; TEMP 98.4
[2023-09-13] MEDS ORDERED: LORazepam 0.5 MG TABLET PO PRN
[2023-09-13] MEDS ORDERED: LORazepam 0.5 MG TABLET PO SCH (05:00)
[2023-09-14] MEDS ORDERED: LORazepam 0.5 MG TABLET PO ONE (05:00)
== END 2023-09-12 21:01 | disposition home or self-care (01) | DRG 897 ==
LOC: YASAS 13:30 → Y6N 15:59
PROVIDERS: ADMIT Allergy & Immunology; ATTEND Surgery
PROC: HZ2ZZZZ Detoxification Services for Substance Abuse Treatment (ICD-10-PCS; principal; 2023-09-10)
DX: F10.230 Alcohol dependence with withdrawal, uncomplicated (principal); F14.20 Cocaine dependence, uncomplicated; R71.0 Precipitous drop in hematocrit; I69.354 Hemiplegia and hemiparesis following cerebral infarction affecting left non-dominant side; F17.210 Nicotine dependence, cigarettes, uncomplicated; F25.0 Schizoaffective disorder, bipolar type; F90.9 Attention-deficit hyperactivity disorder, unspecified type; F19.982 Other psychoactive substance use, unspecified with psychoactive substance-induced sleep disorder; I11.0 Hypertensive heart disease with heart failure; I50.9 Heart failure, unspecified; J45.20 Mild intermittent asthma, uncomplicated; J44.9 Chronic obstructive pulmonary disease, unspecified; E11.9 Type 2 diabetes mellitus without complications; D64.9 Anemia, unspecified; G62.89 Other specified polyneuropathies; G47.33 Obstructive sleep apnea (adult) (pediatric); M19.90 Unspecified osteoarthritis, unspecified site; M54.59 Other low back pain; G89.29 Other chronic pain; R26.2 Difficulty in walking, not elsewhere classified; Z99.89 Dependence on other enabling machines and devices; Z79.4 Long term (current) use of insulin; Z88.0 Allergy status to penicillin; Z91.013 Allergy to seafood; Z91.51 Personal history of suicidal behavior; Z56.0 Unemployment, unspecified
CPT/HCPCS: 36415; 80053; 80307; 82140; 82962; 85027; 86780

== ENCOUNTER 2023-09-12 09:58 | Emergency (ER) | payer OTHER ==
[2023-09-12 10:17] VITALS: BP 121/65; PULSE 74; RESP 15; TEMP 97.8; BMI 28.9
== END 2023-09-12 11:28 | disposition left against medical advice (07) ==
LOC: JER 09:58
DX: R79.9 Abnormal finding of blood chemistry, unspecified (principal)
CPT/HCPCS: 82962; 93005; 93010; 99284-25

== ENCOUNTER 2023-09-12 11:29 | Emergency (ER) | payer OTHER ==
[2023-09-12 11:43] VITALS: BP 124/77; PULSE 70; RESP 16; TEMP 97.7; BMI 32.3
[2023-09-12 13:09] LABS: INR 1.04 (0.83-1.09)
[2023-09-12 13:18] LABS: POTASSIUM 5.1 mmol/L (3.5-5.1)
[2023-09-12 13:20] LABS: ALBUMIN 3.4 g/dl (3.4-5.0); BLOOD UREA NITROGEN 16.9 mg/dL (7-18)
[2023-09-12 13:25] LABS: BILIRUBIN,TOTAL 0.3 mg/dL (0.2-1); TOT PROT 7.2 g/dl (6.4-8.2)
[2023-09-12 13:36] LABS: ACTIVATED PTT 16.6 SECONDS (25.2-36.5)
== END 2023-09-12 15:00 | disposition left against medical advice (07) ==
LOC: JER 11:29
DX: D64.9 Anemia, unspecified (principal)
CPT/HCPCS: 36415; 80053; 84484; 85610; 85730; 86850; 86870; 86880; 86900; 86901; 86902; 99285-25

== ENCOUNTER 2024-06-22 14:56 | Inpatient (IN) | payer OTHER ==
[2024-06-22 15:25] VITALS: BMI 27.9
[2024-06-22] MEDS ORDERED: diazePAM 5 MG TABLET PO PRN (16:05)
[2024-06-22] MEDS ORDERED: ONDANSETRON *ODT* 4 MG TABLET SL PRN (16:05)
[2024-06-22] MEDS ORDERED: NALOXONE (NARCAN) HCL 4 MG/0.1 ML SPRAY NS PRN (16:05)
[2024-06-22] MEDS ORDERED: BENZOCAINE/MENTHOL (CHLORASEPTIC ) LOZENGE MM PRN (16:05)
[2024-06-22] MEDS ORDERED: DICYCLOMINE HCL 10 MG CAPSULE PO PRN (16:05)
[2024-06-22] MEDS ORDERED: LOPERAMIDE HCL 2 MG CAPSULE PO PRN (16:05)
[2024-06-22] MEDS ORDERED: BISMUTH SUBSALICYLATE 524 MG/30 ML PO PRN (16:05)
[2024-06-22] MEDS ORDERED: MAGNESIUM HYDROX 2400MG/30ML ORAL SUSPENSION 30 ML CUP PO PRN (16:05)
[2024-06-22] MEDS ORDERED: MAG HYDROX/AL HYDROX/SIMETH 30 ML UNIT-DOSE CUP PO PRN (16:05)
[2024-06-22] MEDS ORDERED: IBUPROFEN 600 MG TABLET (FP) PO PRN (16:05)
[2024-06-22] MEDS ORDERED: guaiFENesin 600 MG TABLET.ER (FP) PO PRN (16:05)
[2024-06-22] MEDS ORDERED: ACETAMINOPHEN 325 MG TABLET (FP) PO PRN (16:05)
[2024-06-22] MEDS ORDERED: POLYETHYLENE GLYCOL (HEALTHYLAX) 3350 17 GM PACKET PO PRN (16:05)
[2024-06-22] MEDS ORDERED: IBUPROFEN 400 MG TABLET (FP) PO PRN (16:05)
[2024-06-22] MEDS ORDERED: INSULIN (NOVOLOG) ASPART 100 UNITS/ML 10ML VIAL ONE (18:46)
[2024-06-22] MEDS ORDERED: diazePAM 5 MG TABLET ONE (18:46)
[2024-06-22] MEDS ORDERED: GABAPENTIN 100 MG CAPSULE ONE (18:46)
[2024-06-22] MEDS ORDERED: PRENATAL VITAMINS W/ FOLIC ACID TABLET (FP) PO ONE (18:47)
[2024-06-22] MEDS: GABAPENTIN 300 MG CAPSULE PO SCH (18:51)
[2024-06-22] MEDS: INSULIN (NOVOLOG) ASPART 100 UNITS/ML 10ML VIAL SQ SCH (18:52)
[2024-06-22] MEDS: diazePAM 5 MG TABLET PO SCH (18:52)
[2024-06-22] MEDS: FERROUS SO4 325 MG TABLET (FP) PO SCH (18:52)
[2024-06-22] MEDS: PRENATAL VITAMINS W/ FOLIC ACID TABLET (FP) PO SCH (18:52)
[2024-06-22] MEDS: BUDESONIDE/FORMETEROL FUMARATE 80/4.5 mcg INHALER IH SCH (23:02)
[2024-06-22] MEDS: MELATONIN 5 MG TABLETS PO SCH (23:03)
[2024-06-22] MEDS: THIAMINE 100 MG TABLET PO SCH (23:03)
[2024-06-22] MEDS: FLUTICASONE PROP 0.05% 16 GM NASAL SPRAY NS SCH (23:03)
[2024-06-22] MEDS: INSULIN GLARGINE (LANTUS) 100 UNITS/ML UNITS SQ SCH (23:10)
[2024-06-23] MEDS: NICOTINE 7 MG/24 HOURS TOPICAL PATCH TD SCH (10:20)
[2024-06-23] MEDS: LISINOPRIL 10 MG TABLET PO SCH (10:20)
[2024-06-23] MEDS: NALTREXONE HCL 50 MG TABLET PO SCH (10:20)
[2024-06-23 11:24] LABS: HEMATOCRIT 20.6 % (40.1-51.0); HEMOGLOBIN 5.3 g/dL (13.7-17.5); MCHC 25.7 g/dl (32.3-36.5); MEAN CELL VOLUME 74.4 fl (79.0-92.2); MEAN PLT VOLUME 11.1 fl (9.4-12.4); PLATELET COUNT 360 x10^3/uL (163-337); RDW 22.3 % (12.2-16.4)
[2024-06-23 13:30] LABS: CHLORIDE 110 mmol/L (98-107); POTASSIUM 4.6 mmol/L (3.5-5.1); SODIUM 142 mmol/L (136-145)
[2024-06-23 13:38] LABS: ALBUMIN 3.4 g/dl (3.4-5.0); ANION GAP 5 mmol/L (4-13); BLOOD UREA NITROGEN 20.3 mg/dL (7-18); CO2 26 mmol/L (21-32); GLUCOSE,RANDOM 126 mg/dL (74-106)
[2024-06-23 13:41] LABS: SGOT/AST 32 U/L (15-37); SGPT/ALT 47 U/L (13-61)
[2024-06-23 13:43] LABS: BILIRUBIN,TOTAL 0.4 mg/dL (0.2-1); TOT PROT 6.9 g/dl (6.4-8.2)
[2024-06-23 13:44] LABS: ALK PHOS 136 U/L (45-117)
[2024-06-23] MEDS: BENZONATATE 200 MG CAPSULE PO PRN (17:46)
[2024-06-23] MEDS: ALBUTEROL SO4 HFA INHALER IH PRN (22:38)
[2024-06-24] MEDS: hydrOXYzine PAMOATE 25 MG CAPSULE (FP) PO PRN (03:29)
[2024-06-24] MEDS: diazePAM 5 MG TABLET PO SCH (06:39)
[2024-06-24] MEDS: METHOCARBAMOL 500 MG TABLET PO PRN (22:58)
[2024-06-25] MEDS: diazePAM 5 MG TABLET PO SCH (05:39)
[2024-06-25 16:59] VITALS: BP 121/65; PULSE 86; RESP 17; TEMP 98
[2024-06-26] MEDS ORDERED: diazePAM 5 MG TABLET PO ONE (06:00)
== END 2024-06-25 17:18 | disposition home or self-care (01) | DRG 897 ==
LOC: YASAS 14:56 → Y3N 18:42
PROVIDERS: ADMIT Allergy & Immunology; ATTEND Allergy & Immunology
PROC: HZ2ZZZZ Detoxification Services for Substance Abuse Treatment (ICD-10-PCS; principal; 2024-06-22)
DX: F10.230 Alcohol dependence with withdrawal, uncomplicated (principal); I69.854 Hemiplegia and hemiparesis following other cerebrovascular disease affecting left non-dominant side; F14.10 Cocaine abuse, uncomplicated; F17.210 Nicotine dependence, cigarettes, uncomplicated; F31.9 Bipolar disorder, unspecified; F41.9 Anxiety disorder, unspecified; G47.33 Obstructive sleep apnea (adult) (pediatric); I25.10 Atherosclerotic heart disease of native coronary artery without angina pectoris; J44.9 Chronic obstructive pulmonary disease, unspecified; D64.9 Anemia, unspecified; M54.30 Sciatica, unspecified side; E11.9 Type 2 diabetes mellitus without complications; Z79.4 Long term (current) use of insulin; Z99.89 Dependence on other enabling machines and devices; Z88.0 Allergy status to penicillin
CPT/HCPCS: 36415; 80053; 80305; 80307; 82962; 85027; 86780; 93005; 93010

== ENCOUNTER 2024-09-08 20:03 | Inpatient (IN) | payer OTHER ==
[2024-09-08 20:18] VITALS: BMI 31.9
[2024-09-08] MEDS ORDERED: MAG HYDROX/AL HYDROX/SIMETH 30 ML UNIT-DOSE CUP PO PRN (21:53)
[2024-09-08] MEDS ORDERED: NICOTINE POLACRILEX 2 MG LOZENGE BC PRN (21:53)
[2024-09-08] MEDS ORDERED: BENZOCAINE/MENTHOL (CHLORASEPTIC ) LOZENGE MM PRN (21:53)
[2024-09-08] MEDS ORDERED: POLYETHYLENE GLYCOL (HEALTHYLAX) 3350 17 GM PACKET PO PRN (21:53)
[2024-09-08] MEDS ORDERED: NICOTINE POLACRILEX 2 MG GUM BUC PRN (21:53)
[2024-09-08] MEDS ORDERED: LOPERAMIDE HCL 2 MG CAPSULE PO PRN (21:53)
[2024-09-08] MEDS ORDERED: NALOXONE (NARCAN) HCL 4 MG/0.1 ML SPRAY NS PRN (21:53)
[2024-09-08] MEDS ORDERED: MAGNESIUM HYDROX 2400MG/30ML ORAL SUSPENSION 30 ML CUP PO PRN (21:53)
[2024-09-08] MEDS ORDERED: BENZONATATE 200 MG CAPSULE PO PRN (21:53)
[2024-09-08] MEDS ORDERED: guaiFENesin 600 MG TABLET.ER (FP) PO PRN (21:53)
[2024-09-08] MEDS ORDERED: ACETAMINOPHEN 325 MG TABLET (FP) PO PRN (21:53)
[2024-09-08] MEDS: MELATONIN 5 MG TABLETS PO SCH (23:52)
[2024-09-08] MEDS: THIAMINE 100 MG TABLET PO SCH (23:52)
[2024-09-09] MEDS: INSULIN ASPART SLIDING SCALE (NOVOLOG) 1 VIAL SQ SCH (07:00)
[2024-09-09] MEDS: PRENATAL VITAMINS W/ FOLIC ACID TABLET (FP) PO SCH (10:15)
[2024-09-09 14:57] LABS: MCHC 29.7 g/dl (32.3-36.5); MEAN CELL VOLUME 80.9 fl (79.0-92.2); MEAN PLT VOLUME 10.7 fl (9.4-12.4); RDW 23.5 % (12.2-16.4)
[2024-09-09 15:20] LABS: CO2 31 mmol/L (21-32); GLUCOSE,RANDOM 97 mg/dL (74-106)
[2024-09-09 15:23] LABS: CREATININE 0.8 mg/dL (0.55-1.3); SGOT/AST 26 U/L (15-37); SGPT/ALT 29 U/L (13-61)
[2024-09-09 15:25] LABS: ALK PHOS 133 U/L (45-117); TOT PROT 6.6 g/dl (6.4-8.2)
[2024-09-09 17:15] LABS: SYPHILIS W/ RPR CONF NON-REACTIVE (NONREACTIVE)
[2024-09-09 17:57] LABS: HCV DIAGNOSTIC IN-HOUSE W/RFLX NON-REACTIVE (NONREACTIVE)
[2024-09-09] MEDS: METHOCARBAMOL 500 MG TABLET PO PRN (21:31)
[2024-09-10] MEDS: hydrOXYzine PAMOATE 25 MG CAPSULE (FP) PO PRN (10:03)
[2024-09-11 13:40] LABS: URINE APPEARANCE CLEAR; URINE BILIRUBIN NEGATIVE (NEGATIVE); URINE COLOR YELLOW; URINE GLUCOSE (UA) NEGATIVE (NEGATIVE); URINE KETONE NEGATIVE (NEGATIVE); URINE LEUK ESTERASE NEGATIVE (NEGATIVE); URINE NITRITE NEGATIVE (NEGATIVE); URINE PROTEIN NEGATIVE (NEGATIVE); URINE UROBILINOGEN 0.2 mg/dL (0.2-1.0)
[2024-09-12 09:03] VITALS: BP 114/56; PULSE 81; RESP 18; TEMP 97.7
== END 2024-09-12 10:55 | disposition home or self-care (01) | DRG 895 ==
LOC: YASAS 20:03 → Y3NR 23:35 → Y3E 09-09 11:28
PROVIDERS: ADMIT Neuromusculoskeletal Medicine & OMM; ATTEND Psychiatry & Neurology Pain Medicine
PROC: HZ42ZZZ Group Counseling for Substance Abuse Treatment, Cognitive-Behavioral (ICD-10-PCS; principal; 2024-09-08)
DX: F14.20 Cocaine dependence, uncomplicated (principal); F10.20 Alcohol dependence, uncomplicated; I10 Essential (primary) hypertension; J44.9 Chronic obstructive pulmonary disease, unspecified; I25.10 Atherosclerotic heart disease of native coronary artery without angina pectoris; F41.8 Other specified anxiety disorders; F31.9 Bipolar disorder, unspecified; M54.30 Sciatica, unspecified side; Z86.73 Personal history of transient ischemic attack (TIA), and cerebral infarction without residual deficits; G62.9 Polyneuropathy, unspecified
CPT/HCPCS: 36415; 80053; 80305; 80307; 81003; 82962; 85027; 86780; 86803; 87811; 93005; 93010